=== PATIENT | male | born 1960 | race Caucasian/White ===

== ENCOUNTER → 2020-08-29 15:36 | Outpatient (BNVA) | payer BC, SELFPAY | PROVIDERS: PCP Internal Medicine; Referring Provider Internal Medicine; Visit Provider Internal Medicine Cardiovascular Disease | DX: Z76.89 Persons encountering health services in other specified circumstances (principal) ==

== ENCOUNTER 2020-10-02 14:02 | Outpatient (REF) | payer BC, SELFPAY ==
[2020-10-02 14:47] LABS: Blood Urea Nitrogen 19 mg/dL (9-16); Estimated Glomerular Filt Rate 58; Glucose Fasting 119 mg/dL (60-99)
== END 2020-10-02 14:03 | disposition home or self-care (01) ==
LOC: HO.LAB 14:02
PROVIDERS: PCP Internal Medicine; Visit Provider Internal Medicine
DX: R73.03 Prediabetes (principal); R79.9 Abnormal finding of blood chemistry, unspecified
CPT/HCPCS: 82565; 82947; 84520

== ENCOUNTER 2021-01-02 08:43 | Outpatient (REF) | payer BC, SELFPAY ==
[2021-01-02 10:22] LABS: Estimated Average Glucose 105 mg/dL; Hemoglobin A1c % 5.3 %
[2021-01-02 10:45] LABS: Alanine Aminotransferase 19 U/L (0-40); Albumin Level 4.5 g/dL (3.5-5.0); Alkaline Phosphatase 73 U/L (39-117); Anion Gap 14 (12-20); Aspartate Amino Transferase 22 U/L (5-37); Bilirubin Direct 0.3 mg/dL (0.0-0.5); Bilirubin Total 0.6 mg/dL (0.0-1.0); Blood Urea Nitrogen 21 mg/dL (9-16); Carbon Dioxide 28 mmol/L (22-29); Chloride 101 mmol/L (96-108); Cholesterol 94 mg/dL; Estimated Glomerular Filt Rate > 60; Glucose Fasting 111 mg/dL (60-99); HDL Cholesterol 34 mg/dL; LDL Cholesterol Calculated 46 mg/dl; Potassium 4.3 mmol/L (3.3-5.1); Sodium 139 mmol/L (135-145); Total Protein 6.8 g/dL (6.5-8.0); Triglycerides 74 mg/dL
[2021-01-02 11:04] LABS: Reflex LDLD? No
== END 2021-01-02 08:44 | disposition home or self-care (01) ==
LOC: HO.10HDL 08:43
PROVIDERS: Visit Provider Internal Medicine
DX: R73.03 Prediabetes (principal); I25.118 Atherosclerotic heart disease of native coronary artery with other forms of angina pectoris
CPT/HCPCS: 36415; 80051; 80061; 80076; 82565; 82947; 83036; 84520

== ENCOUNTER → 2021-02-27 07:37 | Outpatient (REF) | payer BC, SELFPAY ==
--- NOTE | 2021-02-27 07:39 | CA_ITS ---
Transthoracic Echocardiogram Patient (Last, First, Middle): Kevin Guerrero M Gender: Male Date of : 1960 Age: 61 Procedure Date: 02/27/2021 Procedure Type: Transthoracic Echocardiogram Location: OP Height: 180.34 cm Weight: 81.65 kg BSA: 2.02 m2 Heart Rate: bpm BP: 130 / 74 mmHg Route Delivery Manager: Juan MD: Kvng Hooks MD Synchronous Motor Assembler: Kvng Hooks MD Symptoms: I25.10 - Atherosclerotic heart disease of [place] coronary artery without angina pectoris Study Quality: Good ECG Rhythm: Sinus Conclusions: - 1. Normal LV systolic function with impaired relaxation filling pattern 2. Mild aortic regurgitation 3. Normal RV systolic pressure 4. Mildly dilated aortic root 5. No pericardial effusion Findings Left Ventricle Normal left ventricular size and systolic function. There is mildly increased left ventricular wall thickness. The visually estimated ejection fraction is between 65-70%. Spectral Doppler is indicative of an impaired relaxation filling pattern. E/E prime ratio is between 8 and 15 consistent with indeterminate filling pressures. Right Ventricle Normal right ventricular cavity size and systolic function. Atria The left atrium is likely dilated. There is no evidence of interatrial shunt. The right atrium is normal in size. Aortic Valve Normal aortic valve structure and function. There is no aortic valve stenosis. There is mild aortic valve regurgitation. Mitral Valve There is mild posterior mitral leaflet thickening. There is mild mitral annular calcification. There is trace mitral valve regurgitation. There is no mitral valve stenosis. Pulmonic Valve The pulmonic valve is likely normal. There is trace to mild pulmonic valve regurgitation. Tricuspid Valve Normal tricuspid valve structure. There is trace tricuspid valve regurgitation. The right ventricular systolic pressure is normal. The right ventricular systolic pressure is 23 mmHg. Normal right atrial pressure. There is no evidence of pulmonary hypertension. Great Vessels There is mild dilatation of the sinuses of Valsalva. The visualized portions of the pulmonary artery and branches are normal. Venous The inferior vena cava is normal in size and collapses greater than 50% with inspiration. Pericardium/Pleural There is no evidence of pericardial effusion. Prior Study Comparison Changes noted compared to prior study dated: 11/20/2020. Mitral regurgitation appears to be trace on this study. There is mild aortic regurgitation noted Measurements 2D Linear Measurements RVIDd: 3.11 RVIDd Index: 1.54 IVSd: 1.20 0.6-0.9/0.6-1.0 cm LVIDd: 5.19 3.9-5.3/4.2-5.9 cm LVIDd Index: 2.57 2.4-3.2/2.2-3.1 cm/m2 LVIDs: 3.28 2.0-3.6 cm LVPWd: 1.18 0.7-1.1 cm Ao Root: 4.20 2.1-3.5 cm LA Diam: 3.90 2.7-3.8/3.0-4.0 cm LAIDs Index: 1.93 1.5-2.3 cm/m2 LV Mass: 305.76 67-162/88-224 g LV Mass Index: 151.37 43-95/49-115 g/m2 LVOT Diam: 2.30 3.0+(-)1.3 cm 2D Systolic Function EF 4C: 75.50 >55% EF 2C: 73.80 >55% EF BiP: 75.20 >55% Mitral Valve MV Pk E: 0.65 MV PK A: 0.67 MV Decel Time: 264.00 E/A: 1.00 E'Lateral: 6.58 E'Medial: 3.77 E/E' Med: 17.20 E/E' Lat: 9.90 Aortic Valve AoV Pk Fareed: 1.35 AoV Mn Fareed: 0.97 AoV VTI: 0.28 AoV Pk Grad: 7.00 Aov Mn Grad: 4.00 MARY Cont.VTI: 4.06 AI Pk Fareed: 3.68 AI [place]: 1.02 LVOT LVOT Pk Fareed: 1.37 LVOT Mn Fareed: 0.87 LVOT VTI: 0.27 LVOT Pk Grad: 8.00 LVOT Mn Grad: 4.00 LVOT Diam: 2.30 LVOT Area: 4.15 Diastolic Function MV Pk E: 0.65 MV Pk A: 0.67 E/A: 1.00 E'Medial: 3.77 E/E' Med: 17.20 E' Laterial: 6.58 E/E' Lat: 9.90 Tricuspid Valve TR Pk Fareed: 1.95 TR Pk Grad: 15.00 RA Press: 8.00 RVSP: 23.00 Great Vessels Aorta Ao Root-2D: 4.20 2.0-3.7 cm Sinus of Valsalva: 4.20 2.0-3.5 cm Ao Asc: 3.60 2.1-3.4 cm Ao Arch: 3.10 Updated in Other Vendor System with Status of Final Kvng Hooks MD electronically signed on 02/27/2021 12:46:29 PM with status of Final
== END ==
LOC: HO.CARD 07:37
PROVIDERS: PCP Internal Medicine; Visit Provider Internal Medicine Cardiovascular Disease
DX: I25.10 Atherosclerotic heart disease of native coronary artery without angina pectoris (principal); I47.1 Supraventricular tachycardia; I71.2 Thoracic aortic aneurysm, without rupture
CPT/HCPCS: 93306

== ENCOUNTER → 2021-03-15 15:14 | Outpatient (BNVA) | payer BC, SELFPAY | PROVIDERS: PCP Internal Medicine; Referring Provider Internal Medicine; Visit Provider Internal Medicine Cardiovascular Disease ==

== ENCOUNTER 2021-07-09 16:30 | Outpatient (REF) | payer BC, SELFPAY ==
[2021-07-09 16:33] LABS: MANUAL DIFF FLAG NO
[2021-07-09 16:54] LABS: Basophils Absolute Auto 0.1 X10*3/uL (0.0-0.2); Basophils Percent Auto 0.8 % (0-2); Eosinophils Absolute Auto 0.1 X10*3/uL (0.0-0.4); Eosinophils Percent Auto 1.4 % (0-4); Hematocrit 43.1 % (42-52); Hemoglobin 15.1 g/dl (14.0-18.0); Imm Gran Abs Auto 0.02 X10*3/uL (0.00-0.03); Imm Gran Pct Auto 0.3 % (0.0-0.4); Lymphocytes Absolute Auto 1.6 X10*3/uL (1.2-4.9); Lymphocytes Percent Auto 23.7 % (20-40); Mean Corpuscular Hemoglobin 32.9 pg (27.0-33.0); Mean Corpuscular Volume 93.9 fL (80-98); Mean Platelet Volume 10.3 fL (9.4-12.4); Monocytes Absolute Auto 0.7 X10*3/uL (0.1-1.2); Monocytes Percent Auto 10.7 % (2-11); Neutrophils Absolute Auto 4.2 X10*3/uL (2.0-8.3); Neutrophils Percent Auto 63.1 % (45-73); Platelet Count 191 X10*3/uL (160-400); Red Blood Count 4.59 X10*6/uL (4.60-5.80); White Blood Count 6.6 X10*3/uL (4.8-10.8)
[2021-07-09 16:57] LABS: Appearance Urine CLEAR; Color Urine YELLOW; Glucose Urine UA NEG (NEG); Leukocyte Esterase Urine NEG (NEG); Nitrite Urine NEG (NEG); Urine Blood NEG (NEG); Urine Ketones NEG (NEG); Urine Protein NEG (NEG-TRACE)
[2021-07-09 17:04] LABS: Estimated Average Glucose 105 mg/dL; Hemoglobin A1c % 5.3 %
[2021-07-09 17:20] LABS: Microalbum/Creatinine Ratio Ur 5.2 ug/mg cr
[2021-07-09 17:23] LABS: Alanine Aminotransferase 19 U/L (0-40); Albumin Level 4.5 g/dL (3.5-5.0); Alkaline Phosphatase 71 U/L (39-117); Anion Gap 14 (12-20); Aspartate Amino Transferase 20 U/L (5-37); Bilirubin Total 0.6 mg/dL (0.0-1.0); Blood Urea Nitrogen 16 mg/dL (9-16); Calcium 9.4 mg/dL (8.4-10.2); Carbon Dioxide 27 mmol/L (22-29); Chloride 101 mmol/L (96-108); Cholesterol 94 mg/dL; Estimated Glomerular Filt Rate > 60; Glucose Fasting 105 mg/dL (60-99); HDL Cholesterol 35 mg/dL; LDL Cholesterol Calculated 41 mg/dl; Potassium 4.3 mmol/L (3.3-5.1); Sodium 138 mmol/L (135-145); Total Protein 7.1 g/dL (6.5-8.0); Triglycerides 93 mg/dL
[2021-07-09 17:42] LABS: PSA,Total (Free>4and<10) 0.63 ng/mL (0.00-4.00); TSH reflex Free T4 1.11 uIU/mL (0.32-4.0); Vitamin D 25-OH Total 35.7 ng/mL (>30)
[2021-07-09 17:56] LABS: Reflex LDLD? No
== END 2021-07-09 16:31 | disposition home or self-care (01) ==
LOC: HO.LNP 16:30
PROVIDERS: Visit Provider Internal Medicine
DX: Z00.00 Encounter for general adult medical examination without abnormal findings (principal); Z12.5 Encounter for screening for malignant neoplasm of prostate; R73.03 Prediabetes; R79.9 Abnormal finding of blood chemistry, unspecified; E55.9 Vitamin D deficiency, unspecified; I10 Essential (primary) hypertension
CPT/HCPCS: 80053; 80061; 81003; 82043; 82306; 83036; 84153; 84443; 85025

== ENCOUNTER → 2021-10-25 13:17 | Outpatient (BNVA) | payer BC, SELFPAY | PROVIDERS: PCP Internal Medicine; Referring Provider Internal Medicine; Visit Provider Internal Medicine Cardiovascular Disease | DX: I25.10 Atherosclerotic heart disease of native coronary artery without angina pectoris (principal); I71.2 Thoracic aortic aneurysm, without rupture; I47.1 Supraventricular tachycardia | CPT/HCPCS: 93005 ==

== ENCOUNTER 2022-01-03 08:08 | Outpatient (REF) | payer BC, SELFPAY ==
[2022-01-03 09:08] LABS: Estimated Average Glucose 111 mg/dL; Hemoglobin A1c % 5.5 %
[2022-01-03 09:09] LABS: Alanine Aminotransferase 22 U/L (0-40); Albumin Level 4.6 g/dL (3.5-5.0); Alkaline Phosphatase 65 U/L (39-117); Aspartate Amino Transferase 22 U/L (5-37); Bilirubin Direct 0.3 mg/dL (0.0-0.5); Bilirubin Total 0.8 mg/dL (0.0-1.0); Cholesterol 97 mg/dL; Glucose Fasting 107 mg/dL (60-99); HDL Cholesterol 34 mg/dL; LDL Cholesterol Calculated 42 mg/dl; Total Protein 7.2 g/dL (6.5-8.0); Triglycerides 106 mg/dL
[2022-01-03 18:04] LABS: Reflex LDLD? No
== END 2022-01-03 08:09 | disposition home or self-care (01) ==
LOC: HO.LAB 08:08
PROVIDERS: PCP Internal Medicine; Visit Provider Internal Medicine
DX: I25.118 Atherosclerotic heart disease of native coronary artery with other forms of angina pectoris (principal); R73.03 Prediabetes
CPT/HCPCS: 36415; 80061; 80076; 82947; 83036

== ENCOUNTER → 2022-05-09 15:21 | Outpatient (BNVA) | payer BC, SELFPAY | PROVIDERS: PCP Internal Medicine; Referring Provider Internal Medicine; Visit Provider Internal Medicine Cardiovascular Disease | DX: I25.10 Atherosclerotic heart disease of native coronary artery without angina pectoris (principal); I47.1 Supraventricular tachycardia; I71.2 Thoracic aortic aneurysm, without rupture | CPT/HCPCS: 93005 ==

== ENCOUNTER 2022-07-25 10:48 | Outpatient (REF) | payer BC, SELFPAY ==
[2022-07-25 10:53] LABS: MANUAL DIFF FLAG NO
[2022-07-25 11:37] LABS: Basophils Absolute Auto 0.1 X10*3/uL (0.0-0.2); Basophils Percent Auto 0.7 % (0-2); Eosinophils Absolute Auto 0.1 X10*3/uL (0.0-0.4); Eosinophils Percent Auto 1.2 % (0-4); Hematocrit 40.7 % (42.0-52.0); Hemoglobin 14.5 g/dl (14.0-18.0); Imm Gran Abs Auto 0.02 X10*3/uL (0.00-0.03); Imm Gran Pct Auto 0.3 % (0.0-0.4); Lymphocytes Absolute Auto 2.4 X10*3/uL (1.2-4.9); Lymphocytes Percent Auto 31.3 % (20-40); Mean Corpuscular HGB Conc 35.6 g/dl (31.0-36.0); Mean Corpuscular Hemoglobin 32.9 pg (27.0-33.0); Mean Corpuscular Volume 92.3 fL (80.0-98.0); Mean Platelet Volume 10.1 fL (9.4-12.4); Monocytes Absolute Auto 0.9 X10*3/uL (0.1-1.2); Monocytes Percent Auto 11.8 % (2-11); Neutrophils Absolute Auto 4.2 x10*3/uL (2.0-8.3); Neutrophils Percent Auto 54.7 % (45-73); Platelet Count 181 X10*3/uL (160-400); Red Blood Count 4.41 X10*6/uL (4.60-5.80); Red Cell Distribution Width 11.9 % (11.0-16.0); White Blood Count 7.7 X10*3/uL (4.8-10.8)
[2022-07-25 11:42] LABS: Appearance Urine Clear; Color Urine Yellow; Glucose Urine UA Negative (Negative); Leukocyte Esterase Urine Negative (Negative); Nitrite Urine Negative (Negative); Specific Gravity - Urine 1.025 (1.005-1.025); Urine Blood Negative (Negative); Urine Ketones Negative (Negative); Urine Protein Negative (Neg-Trace)
[2022-07-25 11:49] LABS: Bacteria Urine None Seen (None Seen); Hyaline Casts Urine 0-2 /LPF (0-2); RBC Urine 0-2 /HPF (0-2); Squamous Epithelial Cell Urine 0-2 /HPF (0-2); WBC Urine 0-5 /HPF (0-5)
[2022-07-25 11:50] LABS: Estimated Average Glucose 108 mg/dL; Hemoglobin A1c % 5.4 %
[2022-07-25 11:53] LABS: Alanine Aminotransferase 24 U/L (0-40); Albumin Level 4.6 g/dL (3.5-5.0); Alkaline Phosphatase 65 U/L (39-117); Anion Gap 15 (12-20); Aspartate Amino Transferase 22 U/L (5-37); Bilirubin Total 0.5 mg/dL (0.0-1.0); Blood Urea Nitrogen 25 mg/dL (9-16); Calcium 9.5 mg/dL (8.4-10.2); Carbon Dioxide 28 mmol/L (22-29); Chloride 98 mmol/L (96-108); Cholesterol 103 mg/dL; Estimated Glomerular Filt Rate 50; Glucose Fasting 99 mg/dL (60-99); HDL Cholesterol 40 mg/dL; LDL Cholesterol Calculated 44 mg/dl; Potassium 4.4 mmol/L (3.3-5.1); Sodium 137 mmol/L (135-145); Triglycerides 97 mg/dL
[2022-07-25 12:14] LABS: PSA,Total (Free>4and<10) 0.85 ng/mL (0.00-4.00); Vitamin D 25-OH Total 37.9 ng/mL (>30)
[2022-07-25 12:19] LABS: Creatinine Urine 189.23 mg/dL; Microalbum/Creatinine Ratio Ur 3.1 ug/mg cr
== END 2022-07-25 10:49 | disposition home or self-care (01) ==
LOC: HO.LNP 10:48
PROVIDERS: Visit Provider Internal Medicine
DX: Z00.00 Encounter for general adult medical examination without abnormal findings (principal); Z12.5 Encounter for screening for malignant neoplasm of prostate; R73.03 Prediabetes; R79.9 Abnormal finding of blood chemistry, unspecified; I10 Essential (primary) hypertension; E55.9 Vitamin D deficiency, unspecified
CPT/HCPCS: 80053; 80061; 81001; 82043; 82306; 83036; 84153; 85025

== ENCOUNTER 2022-07-29 17:02 | Outpatient (REF) | payer BC, SELFPAY ==
[2022-07-29 17:36] LABS: Blood Urea Nitrogen 30 mg/dL (9-16); Estimated Glomerular Filt Rate 55
== END 2022-07-29 17:03 | disposition home or self-care (01) ==
LOC: HO.LAB 17:02
PROVIDERS: PCP Internal Medicine; Visit Provider Internal Medicine
DX: R79.9 Abnormal finding of blood chemistry, unspecified (principal)
CPT/HCPCS: 36415; 82565; 84520

== ENCOUNTER 2022-08-29 13:58 | Outpatient (REF) | payer BC, SELFPAY ==
[2022-08-29 15:03] LABS: Blood Urea Nitrogen 17 mg/dL (9-16); Estimated Glomerular Filt Rate > 60
== END 2022-08-29 13:59 | disposition home or self-care (01) ==
LOC: HO.LAB 13:58
PROVIDERS: PCP Internal Medicine; Visit Provider Internal Medicine
DX: R79.9 Abnormal finding of blood chemistry, unspecified (principal)
CPT/HCPCS: 36415; 82565; 84520

== ENCOUNTER 2022-10-04 10:18 | Outpatient (REF) | payer BC, SELFPAY ==
--- NOTE | ~2022-10-04 | US_ITS ---
EXAMINATION: US ABDOMEN COMPLETE CLINICAL INFORMATION: Unspecified abdominal pain. COMPARISON: None TECHNIQUE: Real-time imaging of the abdominal viscera. Technically limited study secondary to bowel gas. FINDINGS: PANCREAS: Not visualized due to bowel gas ABDOMINAL AORTA: Not visualized due to bowel gas INFERIOR VENA CAVA: Visualized portions are normal. LIVER: Normal. The liver is normal in size. The liver contour is normal. Parenchymal echogenicity is normal. No focal hepatic lesion. There is no intrahepatic biliary duct dilatation seen. GALLBLADDER: Normal. The gallbladder is physiologically distended without evidence of stones, sludge, polyps, wall thickening or pericholecystic fluid. COMMON BILE DUCT: Normal in caliber measuring 0.5 cm in diameter. RIGHT KIDNEY: Normal. No hydronephrosis. No renal calculi or focal parenchymal lesions. The kidney measures 11.0 cm in maximum dimension. LEFT KIDNEY: Normal. No hydronephrosis. No renal calculi or focal parenchymal lesions. The kidney measures 11.1 cm in maximum dimension. SPLEEN: Normal. Small splenule measuring 1.6 x 1.5 x 1.3 cm. The spleen measures 11.9 cm in maximum dimension. FREE FLUID: None. US/US abdomen complete IMPRESSION: Pancreas and aorta not visualized. Other unremarkable exam.
== END 2022-10-04 10:19 | disposition home or self-care (01) ==
LOC: HO.US 10:18
PROVIDERS: Visit Provider Internal Medicine
DX: R10.9 Unspecified abdominal pain (principal)
CPT/HCPCS: 76700

== ENCOUNTER 2023-02-04 07:58 | Outpatient (REF) | payer BC, SELFPAY ==
[2023-02-04 08:41] LABS: Estimated Average Glucose 108 mg/dL; Hemoglobin A1c % 5.4 %
[2023-02-04 09:29] LABS: Blood Urea Nitrogen 20 mg/dL (9-16); Cholesterol 106 mg/dL; Estimated Glomerular Filt Rate 57; Glucose Random 115 mg/dL (60-115); HDL Cholesterol 36 mg/dL; LDL Cholesterol Calculated 53 mg/dl; Triglycerides 85 mg/dL
[2023-02-04 09:36] LABS: Reflex LDLD? No
== END 2023-02-04 07:59 | disposition home or self-care (01) ==
LOC: HO.LAB 07:58
PROVIDERS: PCP Internal Medicine; Visit Provider Internal Medicine
DX: R79.9 Abnormal finding of blood chemistry, unspecified (principal); R73.03 Prediabetes; I10 Essential (primary) hypertension
CPT/HCPCS: 36415; 80061; 82565; 82947; 83036; 84520

== ENCOUNTER → 2023-03-06 12:59 | Outpatient (REF) | payer BC, SELFPAY ==
--- NOTE | 2023-03-06 13:02 | CA_ITS ---
Transthoracic Echocardiogram Patient (Last, First, Middle): Kevin Guerrero M Gender: Male Date of : 1960 Age: 63 Procedure Date: 03/06/2023 Procedure Type: Transthoracic Echocardiogram Location: OP Height: 177.8 cm Weight: 86.18 kg BSA: 2.04 m2 Heart Rate: bpm BP: 155 / 85 mmHg Product Development Scientist: JEANIE Referring MD: Kvng Hooks MD Symptoms: I71.2 - Thoracic aortic aneurysm, without rupture Study Quality: Adequate ECG Rhythm: Sinus Conclusions: - The left ventricular systolic function is normal. The calculated ejection fraction is 68% by biplane method. - There is mildly increased left ventricular wall thickness. - There is mild aortic valve regurgitation. - There is mild dilatation of the sinuses of Valsalva measuring 4.62 cm and mild dilatation of the ascending aorta measuring 4.10 cm. Findings Left Ventricle Normal left ventricular cavity size. There is mildly increased left ventricular wall thickness. The left ventricular systolic function is normal. The calculated ejection fraction is 68% by biplane method. There is no evidence of regional wall motion abnormalities. Diastolic function is normal for age. LV peak GLS -17.6%. Right Ventricle Normal right ventricular cavity size and systolic function. Atria Both atria are normal in size. Aortic Valve There is a normal trileaflet aortic valve. There is no aortic valve stenosis. There is mild aortic valve regurgitation. Mitral Valve There is mild mitral annular calcification. There is trace mitral valve regurgitation. There is no mitral valve stenosis. Pulmonic Valve There is trace pulmonic valve regurgitation. Tricuspid Valve There is mild tricuspid valve regurgitation. There is no evidence of pulmonary hypertension. Great Vessels There is mild dilatation of the sinuses of Valsalva measuring 4.62 cm and mild dilatation of the ascending aorta measuring 4.10 cm. Venous The inferior vena cava is mildly dilated and collapses greater than 50% with inspiration. Pericardium/Pleural There is no evidence of pericardial effusion. Prior Study Comparison Changes noted compared to prior study dated: 02/27/2021. Increase in ascending aortic size. Measurements 2D Linear Measurements IVSd: 1.12 0.6-0.9/0.6-1.0 cm LVIDd: 4.67 3.9-5.3/4.2-5.9 cm LVIDd Index: 2.29 2.4-3.2/2.2-3.1 cm/m2 LVIDs: 3.07 2.0-3.6 cm LVPWd: 1.25 0.7-1.1 cm LA Diam: 4.30 2.7-3.8/3.0-4.0 cm LAIDs Index: 2.11 1.5-2.3 cm/m2 LV Mass: 256.95 67-162/88-224 g LV Mass Index: 125.96 43-95/49-115 g/m2 LVOT Diam: 2.20 3.0+(-)1.3 cm 2D Systolic Function EF 4C: 69.30 >55% EF 2C: 66.80 >55% EF BiP: 67.60 >55% Mitral Valve MV Pk E: 0.90 MV PK A: 0.82 MV Decel Time: 250.00 E/A: 1.10 E'Lateral: 8.92 E'Medial: 4.79 E/E' Med: 18.90 E/E' Lat: 10.10 PHT: 73.00 MVA PHT: 3.01 Decel Wilkinson: 3.62 Aortic Valve AoV Pk Fareed: 1.64 AoV Mn Fareed: 1.14 AoV VTI: 0.39 AoV Pk Grad: 11.00 Aov Mn Grad: 6.00 MARY Cont.VTI: 3.39 AI Pk Fareed: 4.46 AI Wilkinson: 1.70 LVOT LVOT Pk Fareed: 1.50 LVOT Mn Fareed: 0.97 LVOT VTI: 0.34 LVOT Pk Grad: 9.00 LVOT Mn Grad: 4.00 LVOT Diam: 2.20 LVOT Area: 3.80 Diastolic Function MV Pk E: 0.90 MV Pk A: 0.82 E/A: 1.10 E'Medial: 4.79 E/E' Med: 18.90 E' Laterial: 8.92 E/E' Lat: 10.10 Right Ventricle TAPSE (mm): 21.70 TVS' Fareed: 12.10 Tricuspid Valve TR Pk Fareed: 2.40 TR Pk Grad: 23.00 RA Press: 8.00 RVSP: 31.00 Great Vessels Aorta Sinus of Valsalva: 4.62 2.0-3.[address] [place]: 3.52 1.7-3.4 cm Ao Asc: 4.10 2.1-3.4 cm Ao Arch: 3.50 Updated in Other Vendor System with Status of Final Ang Caballero MD electronically signed on 03/07/2023 3:29:10 PM with status of Final
== END ==
LOC: HO.CARD 12:59
PROVIDERS: PCP Internal Medicine; Visit Provider Internal Medicine Cardiovascular Disease
DX: I25.10 Atherosclerotic heart disease of native coronary artery without angina pectoris (principal); I71.20 Thoracic aortic aneurysm, without rupture, unspecified
CPT/HCPCS: 93306; 93356

== ENCOUNTER → 2023-04-10 15:33 | Outpatient (BNVA) | payer BC, SELFPAY | PROVIDERS: PCP Internal Medicine; Referring Provider Internal Medicine; Visit Provider Internal Medicine Cardiovascular Disease | DX: I25.10 Atherosclerotic heart disease of native coronary artery without angina pectoris (principal); I47.1 Supraventricular tachycardia | CPT/HCPCS: 93005 ==

== ENCOUNTER 2023-08-05 07:53 | Outpatient (REF) | payer BC, SELFPAY ==
[2023-08-05 10:45] LABS: Appearance Urine Clear; Color Urine Yellow; Glucose Urine UA Negative (Negative); Leukocyte Esterase Urine Trace (Negative); Nitrite Urine Negative (Negative); PH 7.5 (5.0-9.0); Specific Gravity - Urine 1.015 (1.005-1.025); UMIC TRIGGER UACC YES; Urine Blood Negative (Negative); Urine Ketones Negative (Negative); Urine Protein Negative (Neg-Trace)
[2023-08-05 10:47] LABS: Bacteria Urine None Seen (None Seen); Hyaline Casts Urine 0-2 /LPF (0-2); RBC Urine 0-2 /HPF (0-2); Squamous Epithelial Cell Urine 0-2 /HPF (0-2); WBC Urine 0-5 /HPF (0-5)
[2023-08-05 10:51] LABS: MANUAL DIFF FLAG NO
[2023-08-05 10:53] LABS: Basophils Absolute Auto 0.1 X10*3/uL (0.0-0.2); Basophils Percent Auto 0.6 % (0-2); Eosinophils Absolute Auto 0.1 X10*3/uL (0.0-0.4); Eosinophils Percent Auto 1.1 % (0-4); Imm Gran Abs Auto 0.04 X10*3/uL (0.00-0.03); Imm Gran Pct Auto 0.4 % (0.0-0.4); Lymphocytes Absolute Auto 2.5 X10*3/uL (1.2-4.9); Mean Corpuscular HGB Conc 34.9 g/dl (31.0-36.0); Mean Corpuscular Hemoglobin 31.6 pg (27.0-33.0); Mean Corpuscular Volume 90.5 fL (80.0-98.0); Mean Platelet Volume 9.7 fL (9.4-12.4); Monocytes Absolute Auto 0.9 X10*3/uL (0.1-1.2); Neutrophils Absolute Auto 5.7 x10*3/uL (2.0-8.3); Neutrophils Percent Auto 60.9 % (45-73); Platelet Count 224 X10*3/uL (160-400); Red Blood Count 4.75 X10*6/uL (4.60-5.80); Red Cell Distribution Width 11.6 % (11.0-16.0); White Blood Count 9.3 X10*3/uL (4.8-10.8)
[2023-08-05 11:30] LABS: Estimated Average Glucose 111 mg/dL; Hemoglobin A1c % 5.5 % (<6.0)
[2023-08-05 11:46] LABS: PSA,Total (Free>4and<10) 1.09 ng/mL (0.00-4.00)
[2023-08-05 12:02] LABS: Alanine Aminotransferase 25 U/L (0-40); Albumin Level 4.5 g/dL (3.5-5.0); Alkaline Phosphatase 75 U/L (39-117); Anion Gap 12 (12-20); Aspartate Amino Transferase 25 U/L (5-37); Bilirubin Total 0.8 mg/dL (0.0-1.0); Blood Urea Nitrogen 15 mg/dL (9-16); Calcium 9.9 mg/dL (8.4-10.2); Carbon Dioxide 29 mmol/L (22-29); Chloride 100 mmol/L (96-108); Estimated Glomerular Filt Rate > 60; Glucose Fasting 102 mg/dL (60-99); Potassium 4.1 mmol/L (3.3-5.1); Sodium 137 mmol/L (135-145); Total Protein 7.4 g/dL (6.5-8.0)
[2023-08-05 12:08] LABS: Vitamin D 25-OH Total 52.7 ng/mL (>30)
[2023-08-05 12:47] LABS: Creatinine Urine 153.71 mg/dL; Microalbum/Creatinine Ratio Ur 3.9 ug/mg cr (<30)
== END 2023-08-05 07:54 | disposition home or self-care (01) ==
LOC: HO.10HDL 07:53
PROVIDERS: Visit Provider Internal Medicine
DX: Z00.00 Encounter for general adult medical examination without abnormal findings (principal); Z12.5 Encounter for screening for malignant neoplasm of prostate; R73.03 Prediabetes; R79.9 Abnormal finding of blood chemistry, unspecified; E55.9 Vitamin D deficiency, unspecified
CPT/HCPCS: 36415; 80053; 81001; 82043; 82306; 82570; 83036; 84153; 85025

== ENCOUNTER 2024-02-21 10:47 | Outpatient (REF) | payer MEDICARE, SELFPAY ==
[2024-02-21 11:32] LABS: Estimated Average Glucose 111 mg/dL; Hemoglobin A1C 139.4965 umol/L; Hemoglobin A1c % 5.5 % (<6.0)
[2024-02-21 11:59] LABS: Alanine Aminotransferase 25 U/L (0-40); Albumin Level 4.5 g/dL (3.5-5.0); Alkaline Phosphatase 72 U/L (39-117); Aspartate Amino Transferase 22 U/L (5-37); Bilirubin Direct 0.2 mg/dL (0.0-0.5); Bilirubin Total 0.6 mg/dL (0.0-1.0); Cholesterol 100 mg/dL (<200); Glucose Fasting 108 mg/dL (60-99); HDL Cholesterol 39 mg/dL (>40); LDL Cholesterol Calculated 48 mg/dL (<100); Total Protein 7.4 g/dL (6.5-8.0); Triglycerides 65 mg/dL (<150)
== END 2024-02-21 10:48 | disposition home or self-care (01) ==
LOC: HO.LAB 10:47
PROVIDERS: PCP Internal Medicine; Visit Provider Internal Medicine
DX: R73.03 Prediabetes (principal); I25.118 Atherosclerotic heart disease of native coronary artery with other forms of angina pectoris
CPT/HCPCS: 36415; 80061; 80076; 82947; 83036

== ENCOUNTER → 2024-03-25 07:54 | Outpatient (REF) | payer MEDICARE, SELFPAY ==
--- NOTE | 2024-03-25 08:00 | CA_ITS ---
Transthoracic Echocardiogram Patient (Last, First, Middle): Kevin Guerrero M Gender: Male Date of : 1960 Age: 64 Procedure Date: 03/25/2024 Procedure Type: Transthoracic Echocardiogram Location: OP Height: 180.34 cm Weight: 86.18 kg BSA: 2.06 m2 Heart Rate: 55 bpm BP: 124 / 70 mmHg Community Health Advisor: SB Referring MD: Kvng Hooks MD Symptoms: I71.2 - Thoracic aortic aneurysm, without rupture Study Quality: Adequate ECG Rhythm: Bradycardia Conclusions: - The left ventricular systolic function is normal. The calculated ejection fraction is 64% by biplane method. - There is moderately increased left ventricular wall thickness. - There is mild aortic valve regurgitation. - There is mild dilatation of the sinuses of Valsalva measuring 4.40 cm and mild dilatation of the ascending aorta measuring 4.10 cm. Findings Left Ventricle Normal left ventricular cavity size. There is moderately increased left ventricular wall thickness. The left ventricular systolic function is normal. The calculated ejection fraction is 64% by biplane method. There is no evidence of regional wall motion abnormalities. Evidence suggests grade I (mild) diastolic dysfunction. LV peak GLS -16.3%, diminished but suspect under-estimation. Right Ventricle Normal right ventricular cavity size and systolic function. Atria Both atria are normal in size. Aortic Valve There is a normal trileaflet aortic valve. There is no aortic valve stenosis. There is mild aortic valve regurgitation. Mitral Valve The mitral valve appears normal. There is mild mitral annular calcification. There is trace mitral valve regurgitation. There is no mitral valve stenosis. Pulmonic Valve There is trace pulmonic valve regurgitation. Tricuspid Valve There is trace tricuspid valve regurgitation. There is no evidence of pulmonary hypertension. Great Vessels There is mild dilatation of the sinuses of Valsalva measuring 4.40 cm and mild dilatation of the ascending aorta measuring 4.10 cm. Venous The inferior vena cava is normal in size and collapses greater than 50% with inspiration. Pericardium/Pleural There is no evidence of pericardial effusion. Prior Study Comparison No significant change compared to prior study dated: 03/06/2023. Measurements 2D Linear Measurements IVSd: 1.38 0.6-0.9/0.6-1.0 cm LVIDd: 4.97 3.9-5.3/4.2-5.9 cm LVIDd Index: 2.41 2.4-3.2/2.2-3.1 cm/m2 LVIDs: 2.96 2.0-3.6 cm LVPWd: 1.34 0.7-1.1 cm LA Diam: 4.10 2.7-3.8/3.0-4.0 cm LAIDs Index: 1.99 1.5-2.3 cm/m2 LV Mass: 345.27 67-162/88-224 g LV Mass Index: 167.61 43-95/49-115 g/m2 LVOT Diam: 2.60 3.0+(-)1.3 cm 2D Systolic Function EF 4C: 63.00 >55% EF 2C: 63.40 >55% EF BiP: 63.60 >55% Mitral Valve MV Pk E: 0.63 MV PK A: 0.67 MV Decel Time: 250.00 E/A: 0.90 E'Lateral: 7.51 E'Medial: 3.59 E/E' Med: 17.40 E/E' Lat: 8.30 PHT: 73.00 MVA PHT: 3.01 Decel Smyth: 2.51 Aortic Valve AoV Pk Fareed: 1.34 AoV Mn Fareed: 0.92 AoV VTI: 0.29 AoV Pk Grad: 7.00 Aov Mn Grad: 4.00 MARY Cont.VTI: 5.46 AI Pk Fareed: 4.16 AI VTI: 2.78 AI Smyth: 1.50 AI Alias Fareed: 0.39 AI RV - PISA: 14.00 ERO - PISA: 5.00 LVOT LVOT Pk Fareed: 1.28 LVOT Mn Fareed: 0.89 LVOT VTI: 0.30 LVOT Pk Grad: 7.00 LVOT Mn Grad: 4.00 LVOT Diam: 2.60 LVOT Area: 5.31 Diastolic Function MV Pk E: 0.63 MV Pk A: 0.67 E/A: 0.90 E'Medial: 3.59 E/E' Med: 17.40 E' Laterial: 7.51 E/E' Lat: 8.30 Right Ventricle TAPSE (mm): 21.70 TVS' Fareed: 12.80 Tricuspid Valve TR Pk Fareed: 1.87 TR Pk Grad: 14.00 RA Press: 8.00 RVSP: 22.00 Great Vessels Aorta Sinus of Valsalva: 4.40 2.0-3.5 cm Ao Asc: 4.10 2.1-3.4 cm Ao Arch: 3.50 Pulmonary Veins Pulm Vein S/D 1.70 Pulmonary Valve PV Pk Fareed: 0.81 Peak PV Grad: 3.00 MS Pk Fareed: 1.68 Updated in Other Vendor System with Status of Final Ang Caballero MD electronically signed on 03/27/2024 10:52:00 AM with status of Final
== END ==
LOC: HO.CARD 07:54
PROVIDERS: PCP Internal Medicine; Visit Provider Internal Medicine Cardiovascular Disease
DX: I71.20 Thoracic aortic aneurysm, without rupture, unspecified (principal)
CPT/HCPCS: 93306; 93356

== ENCOUNTER → 2024-03-25 08:00 | Outpatient (BNV) | payer MEDICARE, SELFPAY | PROVIDERS: PCP Internal Medicine; Visit Provider Internal Medicine | DX: I35.1 Nonrheumatic aortic (valve) insufficiency (principal); I34.81 Nonrheumatic mitral (valve) annulus calcification; R93.1 Abnormal findings on diagnostic imaging of heart and coronary circulation | CPT/HCPCS: 93306; 93356 ==

== ENCOUNTER 2024-04-08 15:27 | Outpatient (AMB) | payer MEDICARE, SELFPAY ==
[2024-04-08 15:29] VITALS: BP 110/60; PULSE 59; BMI 26.1
--- NOTE | 2024-04-08 15:29 | A.OFFVIS_ITS ---
Vital Signs 04/08/24 15:29 Height 5 ft 11 in Weight 187 lb 6.287 oz BMI 26.1 BP 110/60 Blood Pressure Location Lt brachial Position Sitting Pulse 59 Intake Visit Reasons: 1 year follow-up Intake Note: 1 year follow-up with ekg feeling good Pump Erector Required: No Allergies No Known Allergies Allergy (Verified 08/29/20 15:39) Medication List - Last Reconciled 04/08/24 by Kvng Hooks MD acetaminophen (Tylenol) 325 mg PO QID PRN aspirin (Adult Low Dose Aspirin) 81 mg PO DAILY atorvastatin 80 mg PO DAILY cholecalciferol (vitamin D3) 25 mcg PO DAILY metoprolol succinate ER 50 mg PO DAILY 90 days nitroglycerin 0.4 mg sublingual omeprazole 20 mg PO DAILY sertraline 100 mg PO DAILY HPI Comments Details: Kevin comes for follow-up. Recent echocardiogram shows normal LV ejection fraction but moderate increase in left ventricular wall thickness consistent with left ventricular hypertrophy with mildly dilated ascending aorta. This is unchanged. Patient continues to have intermittent episodes of exertional jaw discomfort which is his anginal equivalent. The symptoms are not consistent. Can present at different times. He has not able to clearly delineate any possible triggers for this discomfort. He says blood pressure is generally well controlled. Last LDL is well optimized. Denies any SVT syndrome. Currently takes all his medications. [facility] Medical History Thoracic aortic aneurysm CAD (coronary artery disease) Hyperlipidemia HTN (hypertension) SVT (supraventricular tachycardia) Surgical History Stented coronary artery Family History Father CVD (cardiovascular disease) Diabetes Mother No problems noted. Social History Patient Tobacco Use Status: Never used Tobacco Review of Systems Const Denies chills, Denies fatigue, Denies fever(s), Denies frequent falls, Denies weakness, Denies weight gain and Denies weight loss ENT Denies dizziness Card Denies chest pain, Denies leg edema, Denies lightheadedness, Denies palpitations, Denies dyspnea, Denies dyspnea on exertion, Denies orthopnea and Denies other (loss of consciousness) Resp Denies cough, Denies dyspnea and Denies dyspnea on exertion GI Denies hematochezia and Denies change in stool character Musc Denies abnormal gait, Denies muscle weakness, Denies numbness, Denies radiating pain into limb and Denies tingling Neuro Denies abnormal gait, Denies dizziness, Denies frequent falls, Denies numbness, Denies tingling and Denies weakness Endo Denies fatigue and Denies palpitations Physical Exam Vital Signs: Last Vital Signs Pulse 59 04/08/24 15:29 BP 110/60 04/08/24 15:29 BMI result Body Mass Index 26.1 Const General: cooperative, comfortable, no acute distress, alert and awake Nutritional Appearance: average body habitus Orientation/consciousness: patient oriented x3 Limitations: no limitations Neck Neck: Yes trachea midline, Yes supple and Yes no JVD Carotids: no bruits Resp Effort & Inspection: normal respiratory effort Auscultation: clear to auscultation bilaterally Cardio Jugular venous distension: no JVD Palpation: normal PMI Rate: regular rate Rhythm: regular rhythm Heart sounds: S1 normal heart sound present and S2 normal heart sound present Skin General skin exam: no rashes or lesions noted Neuro General: patient oriented x3 and no focal motor deficits Extrem General: Yes no clubbing, cyanosis or edema Psych Appearance: grossly normal Office Procedures EKG Details: EKG shows normal sinus rhythm with left axis deviation with QS in high lateral leads which could suggest small lateral infarct. [id number], Complete Assessment & Plan Assessment & Plan (1) CAD (coronary artery disease): Comment: progressive angina with severe 2 vessel disease with chronic total occlusion of LAD in the mid segment as well as chronic total occlusion of OM branch Code(s): I25.10 - Atherosclerotic heart disease of enterprise coronary artery without angina pectoris Category: Medical Plan: CAD with severe two-vessel disease with complex PCI of chronic total occlusion to LAD and OM branch remotely. Currently having symptoms of exertional discomfort similar to his angina which is concerning. Could be related to LVH although progressive coronary artery disease as well as stent restenosis needs to ruled out. Will suggest exercise myocardial perfusion imaging in near future to further assess for the same. Further management and workup will depend on the findings of stress test. This was discussed with him. Meanwhile advised him to continue aspirin as well as high-intensity statin therapy. His LDL is well optimized. Blood pressure is currently well optimized. Advised to monitor blood pressure intermittently at home. He has not had any symptoms at rest. Advised to call me if he has progressive symptoms. (2) Thoracic aortic aneurysm: Code(s): I71.2 - Thoracic aortic aneurysm, without rupture Category: Medical Plan: Thoracic aortic aneurysm which has remained failed mild. Will continue monitor every couple years. Continue aggressive blood pressure control which is currently well optimized. Continue aggressive lipid modification vascular risk factor modifications above. (3) SVT (supraventricular tachycardia): Code(s): I47.1 - Supraventricular tachycardia Category: Medical Plan: SVT which has remained suppressed on metoprolol therapy. At this point time no further therapy is recommended. Will follow up in the clinic in 1 year's time, sooner p.r.n.. Thank you for allowing me to partake in his care Orders: Orders CA stress test Today I25.10 - Atherosclerotic heart disease of enterprise coronary artery without angina pectoris NM cardiolite stress test 2 Weeks I25.10 - Atherosclerotic heart disease of enterprise coronary artery without angina pectoris, R07.9 - Chest pain, unspecified Coding Level of Care Code Est Pt Level 4 (31916) Diagnoses CAD (coronary artery disease) I25.10 Thoracic aortic aneurysm I71.2 SVT (supraventricular tachycardia) I47.1 CPT Codes EKG - CPT: [id number], Complete ([id number])
== END 2024-04-08 15:58 | disposition home or self-care (01) ==
PROVIDERS: PCP Internal Medicine; Visit Provider Internal Medicine Cardiovascular Disease
DX: I25.10 Atherosclerotic heart disease of native coronary artery without angina pectoris (principal); I71.20 Thoracic aortic aneurysm, without rupture, unspecified; I47.10 Supraventricular tachycardia, unspecified
CPT/HCPCS: 93010; 99214

== ENCOUNTER → 2024-04-08 15:27 | Outpatient (BNVA) | payer BC, SELFPAY | PROVIDERS: PCP Internal Medicine; Visit Provider Internal Medicine Cardiovascular Disease | DX: I25.10 Atherosclerotic heart disease of native coronary artery without angina pectoris (principal); I71.20 Thoracic aortic aneurysm, without rupture, unspecified; I47.10 Supraventricular tachycardia, unspecified; Z79.82 Long term (current) use of aspirin; Z79.899 Other long term (current) drug therapy | CPT/HCPCS: 93005; 99212 ==

== ENCOUNTER 2024-08-12 08:51 | Outpatient (REF) | payer MEDICARE, SELFPAY ==
[2024-08-12 09:04] LABS: MANUAL DIFF FLAG NO
[2024-08-12 09:15] LABS: Basophils Absolute Auto 0.1 X10*3/uL (0.0-0.2); Basophils Percent Auto 0.7 % (0-2); Eosinophils Absolute Auto 0.1 X10*3/uL (0.0-0.4); Eosinophils Percent Auto 0.7 % (0-4); Hematocrit 39.8 % (42.0-52.0); Hemoglobin 14.2 g/dl (14.0-18.0); Imm Gran Abs Auto 0.02 X10*3/uL (0.00-0.03); Imm Gran Pct Auto 0.3 % (0.0-0.4); Lymphocytes Absolute Auto 1.8 X10*3/uL (1.2-4.9); Lymphocytes Percent Auto 25.7 % (20-40); Mean Corpuscular HGB Conc 35.7 g/dl (31.0-36.0); Mean Corpuscular Hemoglobin 32.3 pg (27.0-33.0); Mean Corpuscular Volume 90.5 fL (80.0-98.0); Mean Platelet Volume 9.9 fL (9.4-12.4); Monocytes Absolute Auto 0.8 X10*3/uL (0.1-1.2); Monocytes Percent Auto 10.9 % (2-11); Neutrophils Absolute Auto 4.4 x10*3/uL (2.0-8.3); Neutrophils Percent Auto 61.7 % (45-73); Platelet Count 189 X10*3/uL (160-400); White Blood Count 7.1 X10*3/uL (4.8-10.8)
[2024-08-12 09:46] LABS: Alanine Aminotransferase 28 U/L (0-40); Albumin Level 4.5 g/dL (3.5-5.0); Alkaline Phosphatase 67 U/L (39-117); Anion Gap 11 (12-20); Aspartate Amino Transferase 34 U/L (5-37); Bilirubin Total 0.6 mg/dL (0.0-1.0); Blood Urea Nitrogen 18 mg/dL (9-16); Calcium 10.3 mg/dL (8.4-10.2); Carbon Dioxide 28 mmol/L (22-29); Chloride 102 mmol/L (96-108); Cholesterol 85 mg/dL (<200); Estimated Glomerular Filt Rate > 60; Glucose Fasting 116 mg/dL (60-99); HDL Cholesterol 37 mg/dL (>40); LDL Cholesterol Calculated 40 mg/dL (<100); Potassium 4.1 mmol/L (3.3-5.1); Sodium 137 mmol/L (135-145); Total Protein 7.1 g/dL (6.5-8.0); Triglycerides 44 mg/dL (<150)
[2024-08-12 09:49] LABS: Appearance Urine Clear; Color Urine Yellow; Glucose Urine UA Negative (Negative); Leukocyte Esterase Urine Negative (Negative); Nitrite Urine Negative (Negative); PH 7.5 (5.0-9.0); Specific Gravity - Urine 1.015 (1.005-1.025); Urine Blood Negative (Negative); Urine Ketones Negative (Negative); Urine Protein Negative (Neg-Trace)
[2024-08-12 09:53] LABS: Bacteria Urine None Seen (None Seen); Hyaline Casts Urine 0-2 /LPF (0-2); RBC Urine 0-2 /HPF (0-2); Squamous Epithelial Cell Urine 0-2 /HPF (0-2); WBC Urine 0-5 /HPF (0-5)
[2024-08-12 10:00] LABS: PSA,Total (Free>4and<10) 1.01 ng/mL (0.00-4.00)
[2024-08-12 10:02] LABS: Vitamin D 25-OH Total 41.8 ng/mL (>30)
== END 2024-08-12 08:52 | disposition home or self-care (01) ==
LOC: HO.LAB 08:51
PROVIDERS: PCP Internal Medicine; Visit Provider Internal Medicine
DX: R73.03 Prediabetes (principal); R79.9 Abnormal finding of blood chemistry, unspecified; I10 Essential (primary) hypertension; E55.9 Vitamin D deficiency, unspecified; Z12.5 Encounter for screening for malignant neoplasm of prostate
CPT/HCPCS: 36415; 80053; 80061; 81001; 82306; 84153; 85025

== ENCOUNTER 2025-02-15 08:50 | Outpatient (REF) | payer MEDICARE, SELFPAY ==
[2025-02-15 09:13] LABS: Estimated Average Glucose 120 mg/dL; Hemoglobin A1C 150.7487 umol/L; Hemoglobin A1c % 5.8 % (<6.0); Total Hemoglobin (HGBA1C) 3832.6066 umol/L
--- OUTSIDE RECORDS SUMMARY | 2025-02-15 09:22 | XMS_ITS | Patient Health Record ---
Author Organization Shan Hsu MD Address [address] [place], [place] [id number] Care Team Providers Care Preconstruction Manager Name Role Phone Shan Hsu Primary Care Provider Allergies No Known Allergies Results Component Value Reference Range Notes Liver Panel Reviewed date:02/22/2024 06:06:03 PM Interpretation: Performing Lab:[address] [phone] Notes/Report: Bilirubin Total 0.6 0.0-1.0 mg/dL Bilirubin Direct 0.2 0.0-0.5 mg/dL Aspartate Amino Transferase 22 5-37 U/L Alanine Aminotransferase 25 0-40 U/L Total Protein 7.4 6.5-8.0 g/dL Albumin Level 4.5 3.5-5.0 g/dL Alkaline Phosphatase 72 39-117 U/L Glucose Fasting Reviewed date:02/22/2024 06:05:45 PM Interpretation: Performing Lab:[address] [phone] Notes/Report: Glucose Fasting 108 60-99 mg/dL A fasting glucose from 100-125 mg/dl is considered impaired (pre-diabetes). Lipid Panel Reviewed date:02/22/2024 06:04:44 PM Interpretation: Performing Lab:[facility], [address] [place] [phone] Notes/Report: Triglycerides 65 <150 mg/dL Desirable Triglyceride: less than 150 mg/dL Borderline High Triglyceride 150-199 mg/dL High Triglyceride: 200-499 mg/dL Very High Triglyceride: greater than or equal to 5OO mg/dL Cholesterol 100 <200 mg/dL Desirable Cholesterol: less than 200 mg/dL Borderline High Cholesterol: 200-239 mg/dL High Cholesterol: greater than 239 mg/dL LDL Cholesterol Calculated 48 <100 mg/dL Desirable LDL: less than 100 mg/dL Near Optimal/Above Optimal LDL: 110-129 mg/dL Borderline High LDL: 130-159 mg/dL High LDL: 160-189 mg/dL Very High LDL: greater than or equal to 190 mg/dL HDL Cholesterol 39 >40 mg/dL Desirable HDL: greater than 40 mg/dL Note: This HDL assay may give artificially low results in patients with liver disease. Hemoglobin A1c Reviewed date:02/22/2024 06:08:36 PM Interpretation: Performing Lab:[address] [phone] Notes/Report: Hemoglobin A1c % 5.5 <6.0 % Hemoglobin A1C Reference Range Adults: 4.8 - 6.0 % Non diabetic: < 6.0 % Goal: < 7.0 % Additional Action Suggested: > 8.0 % Note: Hemoglobin A1c results are invalid for patients with abnormal amounts of HbF. Blood transfusions may impact the HbA1c concentration in the patient sample. Estimated Average Glucose 111 eAG = Estimated average glucose which is %A1C expressed as average glucose, using the formula of the N1G-Vzvobwt Average Glucose study (ADAG), Diabetes Care, Vol.31,#8, 2007 Hemoglobin A1c (Not yet revi ewed by provider) Interpretation: Performing Lab:[facility], [address] [place] [phone] Notes/Report: Hemoglobin A1c % 5.8 <6.0 % Hemoglobin A1C Reference Range Adults: 4.8 - 6.0 % Non diabetic: < 6.0 % Goal: < 7.0 % Additional Action Suggested: > 8.0 % Note: Hemoglobin A1c results are invalid for patients with abnormal amounts of HbF. Blood transfusions may impact the HbA1c concentration in the patient sample. Estimated Average Glucose 120 eAG = Estimated average glucose which is %A1C expressed as average glucose, using the formula of the Y5Q-Knibjgo Average Glucose study (ADAG), Diabetes Care, Vol.31,#8, May. 2007 Reason For Referral No Information Medications Medication SIG (Take, Route, Frequency, Duration) Notes Start Date End Date Status Lisinopril 5 MG TAKE 1 TABLET BY DONTA TH EVERY DAY for 30 Not-Taking PriLOSEC 20 MG 1 capsule Orally Onc e a day Not-Taking Vitamin D (Cholecalciferol) 25 MCG (1000 UT) 1 capsule Orally Once a day Active Metoprolol Succinate ER 50 MG 1 tablet Orally Once a day Active Atorvastatin Calcium 80 MG TAKE 1 TABLET BY MOUTH EVERY DAY Orally Once a day for 90 days Active Sertraline HCl 100 MG TAKE 1 TABLET BY M OUTH EVERY DAY for 90 Active PriLOSEC OTC 20 MG 1 tablet 30 minutes before morning meal Orally Once a day for 30 day(s) Active Aspir-Low 81 MG 1 tablet Orally Once a day for 30 day(s) Active Tylenol 8 Hour 650 MG 2 tablets as neede d Orally every 8 hrs Active Immunizations Vaccine Route Administration Date Status Comme nts Flu Vaccine IM Intramuscular 07/23/2012 Administered Fluarix Quadrivalent IM [facility]cular [facility] Quadrivalent Unknown 09/30/2016 Administered CV S Flu Vaccine Unknown 07/21/2017 Administered pt was give n vaccine at [facility] Flu[facility]ix [facility] at [facility] in [place]. Fluarix Quadrivalent Unknown 07/27/2019 Administered pt had the vaccine at the hospital. Fluarix Quadrivalent IM [facility]cular [facility] Unknown 10/04/2020 Administered Covid Covid Vaccine Unknown 10/26/2020 Administered Pfizer Fluarix Quadrivalent Unknown 07/03/2021 Administered [facility] SARS-COV-2 Pfizer Unknown 07/20/2021 Administered Fluarix Quadrivalent IM Intramuscular 07/[facility] SARS-COV-2 Pfizer Unknown 08/15/2023 Administered [facility] Unknown 08/13/2024 Administered [facility] Flu[facility]ix Quadrivalent - 150 Unknown 08/21/2024 Administered [facility] Social History Tobacco Use: Social History Observation [...] ast year? No Points 0 Interpretation Negative Problems Problem Type SNOMED Code ICD Code Onset Dates Problem Status W/U Status Risk Notes Problem 66212939 Vitamin D deficiency (E55.9) Active confirmed Problem 254213464 Elevated BUN (R79.9) Active confirmed Problem 3377863 Supraventricular tachycardia (I47.1) Active confirmed Problem 85080439 Essential hypertension (I10) Active confirmed Problem 437997499 Dilated aortic r oot (I77.810) Active confirmed Problem 138263169 Prediabetes (R73.03) Active confirmed Problem 063573829 Coronary artery 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 (I25.118) Active confirmed Problem 635657228202418 Family history o f vitamin D deficiency (Z83.49) Active confirmed Vital Signs Blood pressure diastolic 66 mm Hg 08/12/2024 fercho ght is down 9 pounds since 02-26-24 Height 70 in 08/12/2024 weight is down 9 pounds since 02-26-24 Blood pressure systolic 128 mm Hg 08/12/2024 weig ht is down 9 pounds since 02-26-24 Weight 184 lbs 08/12/2024 weight is down 9 pounds since 02-26-24 BMI 26.40 kg/m2 08/12/2024 weight is down 9 pounds since 02-26-24 Encounters Encounter Location Date Provider Diagnosis Shan Hsu MD [address] [place] [phone] 02/26/2024 Shan Hsu Prediabetes R73.03 and Coronary artery 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 I25.118 Shan Hsu MD [address] [place] [id number] 08/12/2024 Shan Hsu Coronary artery 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 I25.118 ; Annual physical exam Z00.00 ; Prediabetes R73.03 ; Essential hypertension I10 ; Vitamin D deficiency E55.9 and Depression screening Z13.31 Shan Hsu MD [address] [place] [address] [place] [phone] 04/19/2024 Shan Hsu Assessments Encounter Date Diagnosis (ICD Code) Assessment Notes Treatment Notes Treatment Clinical Notes Section Notes 02/26/2024 Prediabetes (ICD-10 - R73.03) labs reviewed, stable no need for medication at this time 02/26/2024 Coronary artery 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 (ICD-10 - I25.118) doing well.will continue current regiment, needs stress test.MESSAGE LEFT WITH DR DEL REAL IN REGARDS TO STRESS TEST , WE NEED TO KNOW IF HE WANTS US TO SEND THE ORDER TO [facility] 08/12/2024 Coronary artery 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 (ICD-10 - I25.118) need stress test from dr hooks/ RESULTS OF STRESS TEST DONE AT [facility] RECEIVED 08/12/2024 Annual physical exam (ICD-10 - Z00.00) labs reviewed and discussed with patient 08/12/2024 Prediabetes (ICD-10 - R73.03) stable, no need for medication at this time 08/12/2024 Essential hypertension (ICD-10 - I10) stable, at goal, will contiue current regiment 08/12/2024 Vitamin D deficiency (ICD-10 - E55.9) stable, will contiue current regiment 08/12/2024 Depression screening (ICD-10 - Z13.31) negative screen Plan Of Treatment Pending Test Test Name Order Date Electrocardiogram (EKG) 01/09/2018 US ABD 08/01/2022 ECHO 01/06/2017 Hemoglobin A1c 02/15/2025 Next Appt Details Provider Name:Shan san, 02/18/2025 03:30:00 PM, [address] [place] [address], Suite [facility], [place], [place], [phone], Provider Name:Shan san, 08/11/2025 07:30:00 AM, [address] [place] [address], [address] [place] [address], [phone], Provider Name:Shan san, 08/18/2025 03:30:00 PM, [address] [place] [address], [place] [address], [place], [place], [phone], Insurance Providers Payer Name Payer Address Payer Phone Subscriber Number Group Number Insured Name Patient Relationship to Insured Coverage Start Date Coverage End Date [employer] [address] [place] [address] [id number] Kevin Del Real Self - patient is the insured [facility] [address] [place], [place] [phone] [id number] Kevin Del Real Self - patient is the insured Medical (General) History Medical History History ICD Code 01/31/[address] Aargon
--- OUTSIDE RECORDS SUMMARY | 2025-02-15 09:22 | XMS_ITS ---
Author Organization Shan Hsu MD Address [address] [place], [place] [id number] Care Team Providers Care Varnisher Plasticoater Name Role Phone Shan Hsu Primary Care Provider Results Component Value Reference Range Notes Complete Blood Count Auto Di ff Reviewed date:08/12/2024 09:50:10 AM Interpretation: Performing Lab:[facility], [address] [place] [phone] Notes/Report: White Blood Count 7.1 4.8-10.8 X10*3/uL [...] NRBC Abs Auto 0.000 0.0-0.012 X10*3/uL Comprehensive [place]. Panel Fa st Reviewed date:08/12/2024 11:46:16 AM Interpretation: Performing Lab:[facility], [address] [place] [phone] Notes/Report: Sodium 137 135-145 mmol/L Potassium 4.1 3.3-5.1 mmol/L Chloride 102 96-108 mmol/L Carbon Dioxide 28 22-29 mmol/L Anion Gap 11 12-20 Blood Urea Nitrogen 18 9-16 mg/dL Creatinine 1.16 0.5-1.4 mg/dL Estimated Glomerular Filt Rate > 60 NOTE: For -Maltese individuals, multiply the result by 1.210. Chronic [...] Panel Reviewed date:08/12/2024 11:45:40 AM Interpretation: Performing Lab:[facility], [address] [place] [phone] Notes/Report: Triglycerides 44 <150 mg/dL Desirable Triglyceride: [...] (Free>4and<10) Reviewed date:08/12/2024 11:45:31 AM Interpretation: Performing Lab:[facility], [address] [place] [phone] Notes/Report: PSA,Total (Free>4and<10) 1.01 0.00-4.00 ng/mL A [...] Total Reviewed date:08/12/2024 11:46:26 AM Interpretation: Performing Lab:[facility], [address] [place] [phone] Notes/Report: Vitamin D 25-OH Total 41.8 >30 [...] t Reviewed date:08/12/2024 12:29:55 PM Interpretation: Performing Lab:[facility], [address] [place] [phone] Notes/Report: Urine, Clean Catch Color Urine Yellow Appearance Urine Clear PH 7.5 5.0-9.0 Glucose Urine UA Negative Negative mg/dL Urine Blood Negative Negative Specific [place] - Urine 1.015 1.005-1.025 Urine Protein Negative [...] Location Date Provider Diagnosis Shan Hsu MD [address] [place] [address] [place] [phone] 08/06/2024 Shan Hsu Prediabetes R73.03 ; Elevated [...] Treatment Next Appt Details Provider Name:Shan san, 02/18/2025 03:30:00 PM, [address] [place] [address], [address], [place], [place], [phone], Provider Name:Shan Dhaliwal ier, 08/11/2025 07:30:00 AM, [address], [address], [place], [place], [phone], Provider Name:Shan Dhaliwal ier, 08/18/2025 03:30:00 PM, [address], [address], [place], [phone], Progress Notes * Kevin DEL REAL MDOB: (64 yo M)Acc No.[id number]:08/06/2024 Progress Note Patient:?Kevin DEL REAL Preeti Provider:?Shan Hsu MD :1960???Age:64 Y???Sex:Male Malcolm e:08/06/2024 Address:[address] [place], [place] [id number] Subjective: * Chief Complaints: * ???1. FASTING LABS. * Medical History:? Objective: * Vitals:? Assessment: * Assessment: 1.?Prediabetes - R73.03???2. ?Elevated BUN - R79.9???3.?Essential hypertension - I10???4.?Vitamin D deficiency - E55.9??? Plan: * Treatment: 2.?Elevated BUN?LAB: Complete Blood Count Auto Diff (Collection Date & Time - 08/12/2024 09:02 AM) ?LAB: [facility] [place]. Panel Fast (Collection Date & Time - 08/12/2024 09:02 AM) ?LAB: Lipid Panel (Collection Date & Time - 08/12/2024 09:02 AM) ?LAB: PSA,Total (Free>4and<10) (Collection Date & Time - 08/12/2024 09:02 AM) ?LAB: Vitamin D 25-OH Total (Collection Date & Time - 08/12/2024 09:02 AM) ?LAB: UA ClnCatch+Micro w/rflx Cult (Collection Date & Time - 08/12/2024 09:00 AM) 3.?Essential hypertension?LAB: Complete Blood Count Auto Diff (Collection Date & Time - 08/12/2024 09:02 AM) ?LAB: [facility] [place]. Panel Fast (Collection Date & Time - 08/12/2024 09:02 AM) ?LAB: Lipid Panel (Collection Date & Time - 08/12/2024 09:02 AM) ?LAB: PSA,Total (Free>4and<10) (Collection Date & Time - 08/12/2024 09:02 AM) ?LAB: Vitamin D 25-OH Total (Collection Date & Time - 08/12/2024 09:02 AM) ?LAB: UA ClnCatch+Micro w/rflx Cult (Collection Date & Time - 08/12/2024 09:00 AM) 4.?Vitamin D deficiency?LAB: Complete Blood Count Auto Diff (Collection Date & Time - 08/12/2024 09:02 AM) ?LAB: [facility] [place]. Panel Fast (Collection Date & Time - 08/12/2024 09:02 AM) ?LAB: Lipid Panel (Collection Date & Time - 08/12/2024 09:02 AM) ?LAB: PSA,Total (Free>4and<10) (Collection Date & Time - 08/12/2024 09:02 AM) ?LAB: Vitamin D 25-OH Total (Collection Date & Time - 08/12/2024 09:02 AM) ?LAB: UA ClnCatch+Micro w/rflx Cult (Collection Date & Time - 08/12/2024 09:00 AM) * * The named appointment provid er may or may not be the originator of this progress note, and it is not deemed complete until electronically signed by the appointment provider. Sign off status: Pending * Provider:?Shan Hsu MD Date:?1 Generated for Anamaria garcia/Shila/Garretitting on:?02/15/2025 09:22 AM EDT
--- OUTSIDE RECORDS SUMMARY | 2025-02-15 09:23 | XMS_ITS ---
Author Organization Shan Hsu MD Address [address] [place], [place] [id number] Care Team Providers Care Ward Secretary Name Role Phone hSan Hsu Primary Care Provider [phone] REASON FOR VISIT fasting lipids Encounters Encounter Location Date Provider Diagnosis Shan Hsu MD [address] [place] [phone] 02/07/2025 Shan Hsu Prediabetes R73.03 and Coronary artery 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 I25.118 Assessments Encounter Date Diagnosis (ICD Code) Assessment Notes Treatment Notes Treatment Clinical Notes Section Notes 02/07/2025 Prediabetes (ICD-10 - R73.03) 02/07/2025 Coronary artery 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 (ICD-10 - I25.118) Plan Of Treatment Pending Test Test Name Order Date Liver Panel 02/07/2025 Glucose Fasting 02/07/2025 Lipid Panel with Reflex 02/07/2025 Hemoglobin A1c 02/07/2025 Next Appt Details Provider Name:Shan san, 02/18/2025 03:30:00 PM, [address], [address], [place], [place], [phone], Provider Name:Shan san, 08/11/2025 07:30:00 AM, [address], [address], [place], [place], [phone], Provider Name:Shan Dhaliwal ier, 08/18/2025 03:30:00 PM, [address], [address], [place], [phone], Progress Notes * Kevin DEL REAL MDOB: (64 yo M)Acc No.[id number]:02/07/2025 Progress Note Patient:?Kevin DEL REAL Provider:?Shan Hsu MD :1960???Age:64 Y???Sex:Male Malcolm e:02/07/2025 Address:[address] [place] [address], [place] [address] [id number] Subjective: * Chief Complaints: * ???1. Fasting lipids. * Medical History:? Objective: * Vitals:? Assessment: * Assessment: 1.?Prediabetes - R73.03 (Estela maria elena)???2.?Coronary artery 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 - I25.118??? Plan: * Treatment: 2.?Coronary artery disease o f [place] artery of [place] heart with stable angina pectoris?LAB: Liver Panel ?LAB: Glucose Fasting ?LAB: Lipid Panel with Reflex ?LAB: Hemoglobin A1c * * The named appointment provid er may or may not be the originator of this progress note, and it is not deemed complete until electronically signed by the appointment provider. Sign off status: Pending * Provider:?Shan Hsu MD Date:?0 02/07/2025 Generated for Anamaria garcia/Shila/eTgagesmitting on:?02/15/2025 09:22 AM EDT
--- OUTSIDE RECORDS SUMMARY | 2025-02-15 09:23 | XMS_ITS ---
Author Organization Shan Hsu MD Address [address] [place], [place] [id number] Care Team Providers Care Station Agent Name Role Phone Shan Hsu Primary Care [...] kg/m2 08/12/2024 weight is down 9 pounds [facility] - Encounters Encounter Location Date Provider Diagnosis Shan Hsu MD [address] [place] [address] Drive [address] [place] [phone] 08/12/2024 Shan Hsu Coronary artery disease of [place] artery of [place] heart with stable angina pectoris I25.118 ; Annual physical exam Z00.00 ; Prediabetes R73.03 ; Essential hypertension I10 ; Vitamin D deficiency E55.9 and Depression screening Z13.31 Assessments Encounter Date Diagnosis (ICD Code) Assessment Notes Treatment Notes Treatment Clinical Notes Section Notes 08/12/2024 Coronary artery disease of [place] artery of [place] heart with stable angina pectoris (ICD-10 - I25.118) need stress test from dr hooks/ RESULTS OF STRESS TEST DONE AT [facility] RECEIVED 08/12/2024 Annual physical exam (ICD-10 [...] artery disease of n ative artery of [place]oon[place] heart with stable angina pectoris need stress test from dr hooks/ RESULTS OF STRESS TEST DONE AT [facility] RECEIVED Annual physical exam labs reviewed and d iscussed with patient Prediabetes stable, no need for medication at this time Essential hypertension stable, at goal, will contiue current regiment Vitamin D deficiency stable, will contiu e current regiment Depression screening negative screen Next Appt Details Follow Up: 6 Months, Reason: Provider Name:Shan Dhaliwal ier, 02/18/2025 03:30:00 PM, [address], [address], [place], [phone], Provider Name:Shan Dhaliwal ier, 08/11/2025 07:30:00 AM, [address], [address], [place], [phone], Provider Name:Shan Dhaliwal ier, 08/18/2025 03:30:00 PM, [address], [address], [place], [phone], Progress Notes * Kevin DEL REAL MDOB: (64 yo M)Acc No.[id number]:08/12/2024 Progress Notes Patient:?Kevin Del Real Provider:?Shan Hsu MD :1960???Age:64 Y???Sex:Male Malcolm e:08/12/2024 Address:[address] [place] [address] [facility] Subjective: * Chief Complaints: * ???Overdue for Colorectal Ca ncer ScreeningAnnual * HPI: ???Depression Screening:?PHQ-9?Little interest or pleasure in doing things?Not at all,?Feeling down, depressed, or hopeless?Not at all,?Trouble falling or staying asleep, or sleeping too much?Not at all,?Feeling tired or having little energy?Not at all,?Poor appetite or overeating?Not at all,?Feeling bad about yourself or that you are a failure, or have let yourself or your family down?Not at all,?Trouble concentrating on things, such as reading the newspaper or watching television?Not at all,?Moving or speaking so slowly that other people could have noticed; or the opposite, being so fidgety or restless that you have been moving around a lot more than usual?Not at all,?Thoughts that you would be better off or of hurting yourself in some way?Not at all,?Total Score?0.?Interpretation and Intervention?Depression Screening Findings?Negative,?Follow-Up for Depression?: review of PHQ-9 found negative result, no follow-up needed.?Communication Needs:?Communication Needs?Does the patient have a hearing impairment?No,?Does the patient have a vision impairment??Yes,?If yes, what is the vision impairment??Glasses,?Does the patient have a cognition impairment??No.?Fall Risk:?History?Have you had any falls with injury in the past year??No,?Have you had two or more falls in the past year??No.?SDOH Questions:?SDOH Questions?In the past year have you been worried about losing housing??No,?In the past year have you or any family members you live with been unable to get any of the following when it was really needed? Check all that apply:?Food.?Symptom(s):? patient is a 64 yo male here for annual visit with review of recent labs and follow up of chronic issues, had stress test and was good had nuclear and was normal. * ROS:?General/Constitutional:?Patient denies?fatigue , headache.?Change in appetite?denies.?Chills?denies.?Fever?denies.?Ophthalmologic:?Blurred vision?denies.?Discharge?denies.?Pain?denies.?ENT:?Patient denies?decreased sense of smell , any loss of taste , sore throat.?Decreased hearing?denies.?Sore throat?denies.?Swollen glands?denies.?Endocrine:?Cold intolerance?denies.?Excessive thirst?denies.?Heat intolerance?denies.?Weight loss?denies.?Respiratory:?Cough?denies.?Shortness of breath at rest?denies.?Shortness of breath with exertion?denies.?Wheezing?denies.?Cardiovascular:?Chest pain at rest?denies.?Chest pain with exertion?denies.?Irregular heartbeat?denies.?Shortness of breath?denies.?Gastrointestinal:?Abdominal pain?denies.?Change in bowel habits?denies.?Diarrhea?denies.?Nausea?denies.?Rectal bleeding?denies.?Vomiting?denies .?Genitourinary:?Blood in urine?denies.?Difficulty urinating?denies.?Frequent urination?denies.?Musculoskeletal:?Patient denies?muscle aches.?Painful joints?denies.?Weakness?denies.?Peripheral Vascular:?Patient denies?red and blue toes.?Skin:?Dry skin?denies.?Itching?denies.?Denies?Mole(s),? changes in moles, new moles or any lesions of concern.?Denies?Photosensitivity.?Rash?denies.?Neurologic:?Dizziness?denies.?Fainting?denies.?Headache?denies.? * Medical History:? * Surgical History:? * Hospitalization/Major Diagno stic Procedure:? * Family History:?Father: dece ased 95 yrs, diagnosed with Diabetes.?Mother: 90 yrs.?1 brother(s) , 1 sister(s) . 3 son(s) . .? Father Covid Mother healthy no substance abuse in the family mother depression and Bipolar, No pertinent family medical history, Denies mental health/substance abuse family history, Denies mental health/substance abuse family history. * Social History:?Tobacco Use:?Tobacco Use/Smoking?Patient is a?nonsmoker,?Additional Findings: Tobacco Non-User?Current non-smoker, currently using no form of tobacco.?Drugs/Alcohol:?Alcohol Screen?Did you have a drink containing alcohol in the past year??No,?Points?0,?Interpretation?Negative.?Miscellaneous:?Caffeine: 3-4 cups per day. Children: yes. Community involvements: yes. Exercise: yes, walks 5 times a week2 -3 miles. Home smoke detector use: yes. Housing: owning. Living with: spouse. Marital status: . Occupation: weeks/months/years, works full-time. Pets: none, 1 dog. no Travel outside of the [place]. * Medications:?TakingPriLOSEC OTC 20 MG Tablet Delayed Release 1 [...] reviewed and reconciled with the patient * Allergies:?N.K.D.A.yes[Aller gies Verified] Objective: * Vitals:?Ht: 70, Wt:184, BMI: 26.40, BP:128/66 weight is down 9 pounds since 02-26-24. * ???Past Orders: ???Lab:Lipid Panel (Order Da te - 08/06/2024) (Collection Date - 08/12/2024) ? Value Reference Range ?Triglycerides 44 <150 - mg/dL ?Cholesterol 85 <200 - m g/dL ?LDL Cholesterol Calculated 40 <100 - mg/dL ?HDL Cholesterol 37 L >40 - mg/dL ???Lab:PSA,Total (Free>4and< 10) (Order Date - 08/06/2024) (Collection Date - 08/12/2024) ? Value Reference Range ?PSA,Total (Free>4and<10) 1.01 0.00-4.00 - ng/mL ???Lab:Vitamin D 25-OH Total (Order Date - 08/06/2024) (Collection Date - 08/12/2024) ? Value Reference Range ?Vitamin D 25-OH Total 41.8 >30 - ng/mL ???Lab:UA ClnCatch+Micro w/r flx Cult (Order Date - 08/06/2024) (Collection Date - 08/12/2024) ? Value Reference Range ?Color Urine Yellow - ?Appearance Urine Clear - ?PH 7.5 5.0-9.0 - ?Glucose Urine UA Negative Neg ative - mg/dL ?Urine Blood Negative Negative - ?Specific [place] - Urine 1.015 1.005-1.025 - ?Urine Protein Negative Neg-Tr ananth - mg/dL ?Urine Ketones Negative Negati ve - mg/dL ?Nitrite Urine Negative Negati ve - ?Leukocyte Esterase Urine Negative Negative - ?RBC Urine 0-2 0-2 - /HPF ?WBC Urine 0-5 0-5 - /HPF ?Squamous Epithelial Cell Urine 0-2 0-2 - /HPF ?Bacteria Urine None Seen None Seen - ?Hyaline Casts Urine 0-2 0-2 - /LPF ???Lab:Complete Blood Count Auto Diff (Order Date - 08/06/2024) (Collection Date - 08/12/2024) ? Value Reference Range ?White Blood Count 7.1 4. 8-10.8 - X10*3/uL ?Red Blood Count 4.40 L 4.60 -5.80 - X10*6/uL ?Hemoglobin 14.2 14.0-18.0 - g/dl ?Hematocrit 39.8 L 42.0-52.0 - % ?Mean Corpuscular Volume 90.5 80.0-98.0 - fL ?Mean Corpuscular Hemoglobin 32.3 27.0-33.0 - pg ?Mean Corpuscular HGB Conc 35.7 31.0-36.0 - g/dl ?Red Cell Distribution Width 12.0 11.0-16.0 - % ?Platelet Count 189 160-4 00 - X10*3/uL ?Mean Platelet Volume 9.9 9.4-12.4 - fL ?Neutrophils Percent Auto 61.7 45-73 - % ?Imm Gran Pct Auto 0.3 0. 0-0.4 - % ?Lymphocytes Percent Auto 25.7 20-40 - % ?Monocytes Percent Auto 10.9 2-11 - % ?Eosinophils Percent Auto 0.7 0-4 - % ?Basophils Percent Auto 0.7 0-2 - % ?NRBC Pct Auto 0.0 0.0-0. 2 - /100WBC ?Neutrophils Absolute Auto 4.4 2.0-8.3 - x10*3/uL ?Imm Gran Abs Auto 0.02 0. 00-0.03 - X10*3/uL ?Lymphocytes Absolute Auto 1.8 1.2-4.9 - X10*3/uL ?Monocytes Absolute Auto 0.8 0.1-1.2 - X10*3/uL ?Eosinophils Absolute Auto 0.1 0.0-0.4 - X10*3/uL ?Basophils Absolute Auto 0.1 0.0-0.2 - X10*3/uL ?NRBC Abs Auto 0.000 0.0-0. 012 - X10*3/uL ???Lab:Comprehensive [place]. P tyrone Fast (Order Date - 08/06/2024) (Collection Date - 08/12/2024) ? Value Reference Range ?Sodium 137 135-145 - mmo l/L ?Bilirubin Total 0.6 0.0- 1.0 - mg/dL ?Aspartate Amino Transferase 34 5-37 - U/L ?Alanine Aminotransferase 28 0-40 - U/L ?Total Protein 7.1 6.5-8. 0 - g/dL ?Albumin Level 4.5 3.5-5. 0 - g/dL ?Alkaline Phosphatase 67 39-117 - U/L ?Potassium 4.1 3.3-5.1 - mmol/L ?Chloride 102 96-108 - mm ol/L ?Carbon Dioxide 28 22-29 - mmol/L ?Anion Gap 11 L 12-20 - ?Blood Urea Nitrogen 18 H 9-16 - mg/dL ?Creatinine 1.16 0.5-1.4 - mg/dL ?Estimated Glomerular Filt Rate > 60 - ?Glucose Fasting 116 H 60-9 9 - mg/dL ?Calcium 10.3 H 8.4-10.2 - m g/dL * Examination: ???General Examination: ?GENERAL APPEARANCE:?well developed, well nourished, in no acute distress.?HEAD:?normocephalic, atraumatic.?EYES:?pupils equal, round, reactive to light and accommodation, sclera non-icteric.?EARS:?normal.?ORAL CAVITY:?mucosa moist.?THROAT:?clear.?NECK/THYROID:?neck supple, full range of motion, no cervical lymphadenopathy, no bruits.?SKIN:?warm and dry, no suspicious lesions.?HEART:?regular rate and rhythm, S1, S2 normal, no murmurs.?LUNGS:?clear to auscultation bilaterally.?ABDOMEN:?soft, nontender, nondistended, bowel sounds present, normal, no organomegaly , no masses palpable.?RECTAL EXAM:?declined.?MALE GENITOURINARY:?not examined.?EXTREMITIES:?no clubbing, cyanosis, or edema.?NEUROLOGIC:?nonfocal, motor strength normal upper and lower extremities, sensory exam intact.? Assessment: * Assessment: 1.?Annual physical exam - Z0 0.00 (Primary)?2.?Coronary artery disease of [place]oon[place] artery of [place] heart with stable angina pectoris - I25.118?3.?Prediabetes - R73.03?4.?Essential hypertension - I10?5.?Vitamin D deficiency - E55.9?6.?Depression screening - Z13.31? Plan: * Treatment: 2.?Coronary artery disease o f [place] artery of [place] heart with stable angina pectoris? Notes: need stress test from dr hooks/ RESULTS OF STRESS TEST DONE AT [facility] RECEIVED?? 3.?Prediabetes? Notes: stable, no need for medication at this time?? 4.?Essential hypertension? Notes: stable, at goal, will contiue current regiment?? 5.?Vitamin D deficiency? Notes: stable, will contiue current regiment?? 6.?Depression screening? Notes: negative screen?? * Procedure Codes:? * Preventive Medicine:? ??Counseling:?Care goal follow-up plan:?Counseling for abnormal BMI provided?Yes,?Above Normal BMI Follow-up?Giving encouragement to exercise.? * Follow Up:?6 Months * * Sign off status: Completed true * Provider:?Shan Hsu MD Date:?1 Generated for Anamaria garcia/Shila/eTransmitting on:?02/15/2025 09:22 AM EDT History and Physical Notes * HPI (History [...] patient have a vision impairmen t?: Yes ?If yes, what is the vision impairment?: Glasses Does the patient have a cognition impair ment?: No Examination Category Sub-Category Detail Notes Category Not es General Examination GENERAL APPEARANCE: well dev eloped, well nourished, in no acute distress HEAD: normocephalic, atrau matic EYES: pupils equal, round, reactive to light and accommodation, sclera non- icteric EARS: normal THROAT: clear NECK/THYROID: neck supple, [...]
[2025-02-15 10:03] LABS: Alanine Aminotransferase 31 U/L (0-40); Albumin Level 4.5 g/dL (3.5-5.0); Alkaline Phosphatase 80 U/L (39-117); Aspartate Amino Transferase 32 U/L (5-37); Bilirubin Direct 0.2 mg/dL (0.0-0.5); Bilirubin Total 0.6 mg/dL (0.0-1.0); Cholesterol 109 mg/dL (<200); Glucose Fasting 107 mg/dL (60-99); Total Protein 7.1 g/dL (6.5-8.0); Triglycerides 92 mg/dL (<150)
[2025-02-15 12:23] LABS: HDL Cholesterol 39 mg/dL (>40); LDL Cholesterol Calculated 52 mg/dL (<100)
[2025-02-15 13:58] LABS: Reflex LDLD? No
== END 2025-02-15 08:51 | disposition home or self-care (01) ==
LOC: HO.LAB 08:50
PROVIDERS: PCP Internal Medicine; Visit Provider Internal Medicine
DX: R73.03 Prediabetes (principal); I25.118 Atherosclerotic heart disease of native coronary artery with other forms of angina pectoris
CPT/HCPCS: 36415; 80061; 80076; 82947; 83036

== ENCOUNTER 2025-04-12 15:34 | Outpatient (AMB) | payer MEDICARE, SELFPAY ==
--- NOTE | 2025-04-12 15:39 | A.OFFVIS_ITS ---
Vital Signs 04/12/25 15:42 Height 5 ft 11 in Weight 180 lb BMI 25.1 BP 120/72 Blood Pressure Location Lt brachial Position Sitting Pulse 54 Pulse Source Monitor Intake Visit Reasons: 1 yr follow up Allergies No Known Allergies Allergy (Verified 08/29/20 15:39) Medication List - Last Reconciled 04/12/25 by Kvng Hooks MD acetaminophen (Tylenol) 325 mg PO QID PRN aspirin (Adult Low Dose Aspirin) 81 mg PO DAILY atorvastatin 80 mg PO DAILY cholecalciferol (vitamin D3) 25 mcg PO DAILY metoprolol succinate ER 50 mg PO DAILY nitroglycerin 0.4 mg sublingual omeprazole 20 mg PO DAILY sertraline 100 mg PO DAILY HPI Comments Details: Sam comes for follow-up. Overall he has been doing well from cardiac perspective. He has been remaining active. Occasional jaw discomfort which is not bothersome or limiting for him at this point time unclear whether this exertional. His myocardial perfusion imaging last year was within normal li mits. He has no prolonged palpitation irregular heartbeat. His last LDL is well optimized. He is currently having increased personal stress although he has been very regularly taking his medications. Denies any lightheadedness, syncope. No heart failure symptoms. [facility] Medical History Thoracic aortic aneurysm CAD (coronary artery disease) Hyperlipidemia HTN (hypertension) SVT (supraventricular tachycardia) Surgical History Stented coronary artery Family History Father CVD (cardiovascular disease) Diabetes Mother No problems noted. Social History Patient Tobacco Use Status: Never used Tobacco Review of Systems Const Reports no additional complaints and Denies weakness Eyes Reports no additional complaints ENT Reports no additional complaints and Denies dizziness Card Denies chest pain, Denies chest pain with activity, Denies syncope, Denies rapid heart rate, Denies pedal edema, Denies edema, Denies leg edema, Denies lightheadedness, Denies palpitations, Denies dyspnea, Denies dyspnea on exertion and Denies orthopnea Resp Denies cough, Denies dyspnea and Denies dyspnea on exertion GI Denies hematochezia and Denies change in stool character Musc Denies abnormal gait, Denies muscle cramps, Denies muscle weakness, Denies numbness, Denies radiating pain into limb and Denies tingling Neuro Denies abnormal gait, Denies dizziness, Denies syncope, Denies numbness, Denies tingling and Denies weakness Endo Denies palpitations Physical Exam Vital Signs: Last Vital Signs Pulse 54 04/12/25 15:42 BP 120/72 04/12/25 15:42 BMI result Body Mass Index 25.1 Const General: cooperative, comfortable, no acute distress, alert and awake Nutritional Appearance: average body habitus Orientation/consciousness: patient oriented x3 Limitations: no limitations Neck Neck: Yes trachea midline, Yes supple and Yes no JVD Carotids: no bruits Resp Effort & Inspection: normal respiratory effort Auscultation: clear to auscultation bilaterally Cardio Jugular venous distension: no JVD Palpation: normal PMI Rate: regular rate Rhythm: regular rhythm Heart sounds: S1 normal heart sound present and S2 normal heart sound present Skin General skin exam: no rashes or lesions noted Neuro General: patient oriented x3 and no focal motor deficits Extrem General: Yes no clubbing, cyanosis or edema Psych Appearance: grossly normal Office Procedures EKG Details: EKG shows sinus bradycardia 54 beats per minute with T-wave inversions in inferior leads as well as T-wave inversions in the anterolateral leads, appear to be new compared to prior EKG [id number], Complete Assessment & Plan Assessment & Plan (1) CAD (coronary artery disease): Comment: progressive angina with severe 2 vessel disease with chronic total occlusion of LAD in the mid segment as well as chronic total occlusion of OM branch Code(s): I25.10 - Atherosclerotic heart disease of [place] coronary artery without angina pectoris Category: Medical Plan: Coronary artery disease with no current symptoms that are concerning for myocardial ischemia. Does not have new EKG changes which were discussed with him. Given lack of symptoms and myocardial perfusion imaging within last year within normal limits would monitor clinically. Advised to call me with any new symptoms that are worsening. For now continue aggressive medical therapy. Continue aspirin lifelong. Continue high-intensity statin therapy with well optimized LDL at this point time. Blood pressure is currently well optimized. Importance of regular physical activity was discussed. Encouraged to call me with new symptoms. (2) SVT (supraventricular tachycardia): Code(s): I47.1 - Supraventricular tachycardia Category: Medical Plan: Supraventricular tachycardia has remained suppressed on metoprolol therapy. Has done well with metoprolol therapy. Continue the same. Avoidance of stimulants was discussed. Stress mitigation strategies were discussed. Will follow up in the clinic in 1 year's time, sooner p.r.n.. Thank you for allowing me to partake in his care Coding Level of Care Code Est Pt Level 4 (39098) Complex EM visit Add On G2211 Diagnoses CAD (coronary artery disease) I25.10 SVT (supraventricular tachycardia) I47.1 CPT Codes EKG - CPT: 29732-[id number], Complete ([id number])
[2025-04-12 15:42] VITALS: BP 120/72; PULSE 54; BMI 25.1
--- OUTSIDE RECORDS SUMMARY | 2025-04-12 16:14 | XMS_ITS | Patient Health Record ---
Author Organization [facility] Address [address] [place] [id number] Care Team Providers Care Senior Safety Support Manager Name Role Phone Shan Hsu MD Primary Care Provider Lula Aragon Jr, Kareem Unavailable [phone] Reason For Referral No Information Medications Medication SIG (Take, Route, Frequency, Duration) Notes Start Date End Date Status Keflex 500 MG 1 capsule Orally ethan ry 6 hrs for 10 days 05/04/2019 Active Keflex 500 MG 1 capsule Orally ethan ry 6 hrs for 10 day(s) 09/26/2017 Active Plan Of Treatment No Information Insurance Providers Payer Name Payer Address Payer Phone Subscriber Number Group Number Insured Name Patient Relationship to Insured Coverage Start Date Coverage End Date [facility] [address] [place], [place] [id number] [phone] [id number] KIANA DEL REAL Self - patient is the insured
--- OUTSIDE RECORDS SUMMARY | 2025-04-12 16:15 | XMS_ITS | Patient Health Record ---
Author Organization Shan Hsu MD Address [address] [place], [place] [id number] Care Team Providers Care Accounting Systems Manager Name Role Phone Shan Hsu Primary Care Provider [phone] Allergies No Known Allergies Results Component Value Reference Range Notes Liver Panel Reviewed date:02/15/2025 03:28:07 PM Interpretation: Performing Lab:[address] [id number] Notes/Report: Bilirubin Total 0.6 0.0-1.0 mg/dL Bilirubin Direct 0.2 0.0-0.5 mg/dL Aspartate Amino Transferase 32 5-37 U/L Alanine Aminotransferase 31 0-40 U/L Total Protein 7.1 6.5-8.0 g/dL Albumin Level 4.5 3.5-5.0 g/dL Alkaline Phosphatase 80 39-117 U/L Glucose Fasting Reviewed date:02/15/2025 04:51:16 PM Interpretation: Performing Lab:[address] [phone] Notes/Report: Glucose Fasting 107 60-99 mg/dL A fasting glucose from 100-125 mg/dl is considered impaired (pre-diabetes). Lipid Panel with Reflex Reviewed date:02/15/2025 04:51:32 PM Interpretation: Performing Lab:[facility], [address] [place] [phone] Notes/Report: Triglycerides 92 <150 mg/dL Desirable Triglyceride: less than 150 mg/dL Borderline High Triglyceride 150-199 mg/dL High Triglyceride: 200-499 mg/dL Very High Triglyceride: greater than or equal to 5OO mg/dL Cholesterol 109 <200 mg/dL Desirable Cholesterol: less than 200 mg/dL Borderline High Cholesterol: 200-239 mg/dL High Cholesterol: greater than 239 mg/dL LDL Cholesterol Calculated 52 <100 mg/dL Desirable LDL: less than 100 mg/dL Near Optimal/Above Optimal LDL: 110-129 mg/dL Borderline High LDL: 130-159 mg/dL High LDL: 160-189 mg/dL Very High LDL: greater than or equal to 190 mg/dL HDL Cholesterol 39 >40 mg/dL Desirable HDL: greater than 40 mg/dL Note: This HDL assay may give artificially low results in patients with liver disease. Hemoglobin A1c Reviewed date:02/15/2025 10:12:04 AM Interpretation: Performing Lab:[facility], [address] [place] [phone] Notes/Report: Hemoglobin A1c % 5.8 <6.0 % [...] average glucose, using the formula of the T9M-Ayzbipn Average Glucose study (ADAG), Diabetes Care, Vol.31,#8, [...] Once a day for 30 day(s) Active PriLOSEC 20 MG 1 capsule Orally Onc e a day Not-Taking Nitroglycerin 0.4 MG 1 tablet under the tongue and allow to dissolve as needed. Take every 5 minutes up to 3 times if chest pain persists Sublingual Three times a day for 30 days 02/18/2025 Active Vitamin D (Cholecalciferol) 25 MCG (1000 [...] 07/23/2012 Administered Fluarix Quadrivalent IM Intramuscular 08/08/2015 Administe red Fluarix Quadrivalent Unknown 09/30/2016 Administered CV S Flu Vaccine Unknown 07/21/2017 Administered [place] was [place] [facility] Fluarix Quadrivalent IM Intramuscular 08/16/2018 Administe red Pt was given the vaccine at [facility] in [place]. Fluarix Quadrivalent Unknown 07/27/2019 Administered pt had the vaccine at the hospital. Fluarix Quadrivalent IM Intramuscular 07/18/2020 Administe red Covid Vaccine Unknown 10/04/2020 Administered Covid Covid Vaccine Unknown 10/26/2020 Administered Pfizer Fluarix Quadrivalent Unknown 07/03/2021 Administered CV S SARS-COV-2 Pfizer Unknown 07/20/2021 Administered Fluarix Quadrivalent IM Intramuscular [facility] Quadrivalent IM Intramuscular 08/07[facility]2023 [facility] SARS-COV-2 Pfizer Unknown 08/15/2023 Administered [facility] Shingrix Unknown 08/13/2024 Administered [facility] Fluarix Quadrivalent - 150 Unknown 08/21/2024 Administered [facility] Social History Tobacco Use: Social History Observation [...] Status W/U Status Risk Notes Problem Neuropathy (486800629) Neuropathy (G62.9) Active confirmed Problem 76545065 Vitamin D deficiency (E55.9) Active confirmed Problem 125940950 Elevated BUN (R79.9) Active confirmed Problem 5947277 Supraventricular tachycardia (I47.1) Active confirmed Problem 42922885 Essential hypertension (I10) Active confirmed Problem 234872461 Dilated aortic r oot (I77.810) Active confirmed Problem 374733261 Prediabetes (R73.03) Active confirmed Problem 597395729 Coronary artery disease of [place] artery of [place] heart with stable angina pectoris (I25.118) Active confirmed Problem 080913955272603 Family history o f vitamin D deficiency (Z83.49) Active confirmed Vital Signs Blood pressure diastolic 64 mm Hg 02/18/2025 fercho ght is up 8 pounds since 08-12-24 Height 70 in 02/18/2025 weight is up 8 pounds since 08-12-24 Blood pressure systolic 120 mm Hg 02/18/2025 weig ht is up 8 pounds since 08-12-24 Weight 192 lbs 02/18/2025 weight is up 8 pounds since 08-12-24 BMI 27.55 kg/m2 02/18/2025 weight is up 8 pounds since 08-12-24 Encounters Encounter Location Date Provider Diagnosis Shan Hsu MD [address] [place] [id number] 08/12/2024 Shan Hsu Coronary artery disease of [place] artery of [place] heart with stable angina pectoris I25.118 ; Annual physical exam Z00.00 ; Prediabetes R73.03 ; Essential hypertension I10 ; Vitamin D deficiency E55.9 and Depression screening Z13.31 Shan Hsu MD [address] [place] [id number] 02/18/2025 Shan Hsu Neuropathy G62.9 ; Coronary artery disease of [place] artery of [place] heart with stable angina pectoris I25.118 and Prediabetes R73.03 Shan Hsu MD [address] [place] [address] Drive [address] [place] [id number] 04/19/2024 Shan Hsu Assessments Encounter Date Diagnosis (ICD Code) Assessment Notes Treatment Notes Treatment Clinical Notes Section Notes 08/12/2024 Coronary artery disease of [place] artery of [place] heart with stable angina pectoris (ICD-10 - I25.118) need stress test from dr hooks/ RESULTS OF STRESS TEST DONE AT [facility] RECEIVED 08/12/2024 Annual physical exam (ICD-10 - Z00.00) labs reviewed and discussed with patient 02/18/2025 Neuropathy (ICD-10 - G62.9) has some sensation on the bottoms of feet. may be related to the elevated sugars 08/12/2024 Prediabetes (ICD-10 - R73.03) stable, no need for medication at this time 02/18/2025 Coronary artery disease of [place] artery of [place] heart with stable angina pectoris (ICD-10 - I25.118) stable, will continue current regiment 08/12/2024 Essential hypertension (ICD-10 - I10) stable, at goal, will contiue current regiment 02/18/2025 Prediabetes (ICD-10 - R73.03) stable, no need for medication at this time 08/12/2024 Vitamin D deficiency (ICD-10 - E55.9) stable, will contiue current regiment 08/12/2024 Depression screening (ICD-10 - Z13.31) negative screen Plan Of Treatment Pending Test Test Name Order Date Electrocardiogram (EKG) 01/09/2018 US ABD 08/01/2022 ECHO 01/06/2017 Next Appt Details Provider Name:Shanisiah Dhaliwal ier, 08/11/2025 07:30:00 AM, [address] [place] [address], [address], [phone], Provider Name:Shan Juan Alberto Madhuri ier, 08/18/2025 03:30:00 PM, [address] [place] [address], [address], [phone], Insurance Providers Payer Name Payer Address Payer Phone Subscriber Number Group Number Insured Name Patient Relationship to Insured Coverage Start Date Coverage End Date MEDICARE [facility] [address] [place] [address] [id number] Kevin Del Real Self - patient is the insured [employer] [address] [place], [place] [id number] [phone] [id number] Kevin Del Real Self - patient is the insured Medical (General) History Medical History History ICD Code 01/31/[address] Aragon
== END 2025-04-12 16:02 | disposition home or self-care (01) ==
LOC: HO.HCS 15:34
PROVIDERS: PCP Internal Medicine; Visit Provider Internal Medicine Cardiovascular Disease
DX: I25.10 Atherosclerotic heart disease of native coronary artery without angina pectoris (principal); I47.10 Supraventricular tachycardia, unspecified
CPT/HCPCS: 93010; 99214; G2211

== ENCOUNTER → 2025-04-12 15:34 | Outpatient (BNVA) | payer MEDICARE, SELFPAY | PROVIDERS: PCP Internal Medicine; Visit Provider Internal Medicine Cardiovascular Disease | DX: I25.10 Atherosclerotic heart disease of native coronary artery without angina pectoris (principal); I47.10 Supraventricular tachycardia, unspecified; Z79.899 Other long term (current) drug therapy | CPT/HCPCS: 93005; 99212 ==

== ENCOUNTER 2025-08-18 08:24 | Outpatient (REF) | payer MEDICARE, SELFPAY ==
--- OUTSIDE RECORDS SUMMARY | 2024-02-26 10:30 | XMS_ITS ---
Author Organization Shan Hsu MD Address [address] [place], [place] [id number] Care Team Providers Care Instructor Creeler Name Role Phone Shan Hsu Primary Care Provider Allergies No Known Allergies REASON FOR VISIT 6 MO F/U, No Covid symptoms Medications Medication SIG (Take, Route, Frequency, Duration) Notes Start Date End Date Status Atorvastatin Calcium 80 MG TAKE 1 TABLET BY MOUTH EVERY DAY for 90 Active Sertraline HCl 100 MG TAKE 1 TABLET BY M OUTH EVERY DAY for 90 Active Metoprolol Succinate ER 50 MG 1 tablet Orally Once a day Active PriLOSEC 20 MG 1 capsule Orally Onc e a day Not-Taking Lisinopril 5 MG TAKE 1 TABLET BY DONTA TH EVERY DAY for 30 Not-Taking Vitamin D (Cholecalciferol) 25 MCG (1000 UT) 1 capsule Orally Once a day Active Aspir-Low 81 MG 1 tablet Orally Once a day for 30 day(s) Active Tylenol 8 Hour 650 MG 2 tablets as neede d Orally every 8 hrs Active PriLOSEC OTC 20 MG 1 tablet 30 minutes before morning meal Orally Once a day for 30 day(s) Active Vital Signs Blood pressure systolic 110 mm Hg 02/26/20 24 Blood pressure diastolic 64 mm Hg 024 Height 70 in 02/26/2024 Weight 193 lbs 02/26/2024 BMI 27.69 kg/m2 02/26/2024 weight is up 8 pounds since 11-04-23 Encounters Encounter Location Date Provider Diagnosis Shan Hsu MD [address] [place], [place] [id number] 02/26/2024 Shan Hsu Prediabetes R73.03 and Coronary artery disease of [place] artery of [place] heart with stable angina pectoris I25.118 Assessments Encounter Date Diagnosis (ICD Code) Assessment Notes Treatment Notes Treatment Clinical Notes Section Notes 02/26/2024 Prediabetes (ICD-10 - R73.03) labs reviewed, stable no need for medication at this time 02/26/2024 Coronary artery disease of [place] artery of [place] heart with stable angina pectoris (ICD-10 - I25.118) doing well.will continue current regiment, needs stress test.MESSAGE LEFT WITH DR DEL REAL IN REGARDS TO STRESS TEST , WE NEED TO KNOW IF HE WANTS US TO [place] [facility] [place] Of Treatment Treatment Notes Assessment Notes Prediabetes labs reviewed, stabl e no need for medication at this time Coronary artery disease of [place] artery of [place] heart with stable angina pectoris doing well.will continue current regiment, needs stress test.MESSAGE LEFT WITH DR DEL REAL IN REGARDS TO STRESS TEST , WE NEED TO KNOW IF HE WANTS US TO SEND THE [place] [facility] [place] Next Appt Details Follow Up: 6 Months, Reason: complete Provider Name:Shan Dhaliwal ier, 08/18/2025 03:30:00 PM, [address], [address], [place], [place], [id number], Progress Notes * Kevin DEL REAL MDOB: (64 yo M)Acc No.[id number]:02/26/2024 Progress Notes Patient: Chela ahujaKevin Provider: Dejuan Hsu MD :1960 A ge:64 Y S ex:Male Date:02/26/2024 Address:[address] [place] [address], [id number] Subjective: * Chief Complaints: * 6 MO F/Kerry Covid symptoms * HPI: S ymptom(s): patient is a 64 yo male here for6 month follow up visit. * ROS: G eneral/Constitutional: Denies C hills. D enies F atigue. D enies F ever. D enies H eadache. E NT: Patient denies d ecreased sense of smell , any loss of taste , sore throat. D enies S ore throat. R espiratory: Denies C ough. D enies S hortness of breath at rest. D enies S hortness of breath with exertion. C ardiovascular: Denies C hest pain at rest. D enies C hest pain with exertion. D enies D izziness. G astrointestinal: Denies D iarrhea. D enies N ausea. M usculoskeletal: Patient denies m uscle aches. P eripheral Vascular: Patient denies r ed and blue toes. * Medical History: * Surgical History: * Hospitalization/Major Diagno stic Procedure: * Medications: T akingPriLOSEC OTC 20 MG Tablet Delayed Release 1 tablet 30 minutes before morning meal Orally Once a dayAspir-Low 81 MG Tablet Delayed Release 1 tablet Orally Once a dayTylenol 8 Hour 650 MG Tablet Extended Release 2 tablets as needed Orally every 8 hrsVitamin D (Cholecalciferol) 25 MCG (1000 UT) Capsule 1 capsule Orally Once a dayMetoprolol Succinate ER 50 MG Tablet Extended Release 24 Hour 1 tablet Orally Once a dayAtorvastatin Calcium 80 MG Tablet TAKE 1 TABLET BY MOUTH EVERY DAY Sertraline HCl 100 MG Tablet TAKE 1 TABLET BY MOUTH EVERY DAY Taking PriLOSEC OTC 20 MG Tablet Delayed Release 1 tablet 30 minutes before morning meal Orally Once a dayTaking Aspir-Low 81 MG Tablet Delayed Release 1 tablet Orally Once a dayTaking Tylenol 8 Hour 650 MG Tablet Extended Release 2 tablets as needed Orally every 8 hrsTaking Vitamin D (Cholecalciferol) 25 MCG (1000 UT) Capsule 1 capsule Orally Once a dayTaking Metoprolol Succinate ER 50 MG Tablet Extended Release 24 Hour 1 tablet Orally Once a dayTaking Atorvastatin Calcium 80 MG Tablet TAKE 1 TABLET BY MOUTH EVERY DAY Taking Sertraline HCl 100 MG Tablet TAKE 1 TABLET BY MOUTH EVERY DAY Not-Taking/PRNLisinopril 5 MG Tablet TAKE 1 TABLET BY MOUTH EVERY DAY PriLOSEC 20 MG Capsule Delayed Release 1 capsule Orally Once a dayMedication List reviewed and reconciled with the patientNot-Taking/PRN Lisinopril 5 MG Tablet TAKE 1 TABLET BY MOUTH EVERY DAY Not-Taking/PRN PriLOSEC 20 MG Capsule Delayed Release 1 capsule Orally Once a dayMedication List reviewed and reconciled with the patient * Allergies: N .K.D.A.yes[Allergies Verified] Objective: * Vitals: H t: 70, Wt:193, BMI:27.69, BP:110/64 weight is up 8 pounds since 11-04-23. * P ast Orders: L ab:Liver Panel (Order Date - 02/21/2024) (Collection Date - 02/21/2024) Value Reference Range Bilirubin Total 0.6 0.0-1.0 - mg/dL Bilirubin Direct 0.2 0.0-0.5 - mg/dL Aspartate Amino Transferase 22 5-37 - U/L Alanine Aminotransferase 25 0-40 - U/L Total Protein 7.4 6.5-8.0 - g/dL Albumin Level 4.5 3.5-5.0 - g/dL Alkaline Phosphatase 72 39-117 - U/L L ab:Glucose Fasting (Order Date - 02/21/2024) (Collection Date - 02/21/2024) Value Reference Range Glucose Fasting 108 H 60-99 - mg/dL L ab:Lipid Panel (Order Date - 02/21/2024) (Collection Date - 02/21/2024) Value Reference Range Triglycerides 65 <150 - mg/dL Cholesterol 100 <200 - mg/dL LDL Cholesterol Calculated 48 <100 - mg/dL HDL Cholesterol 39 L >40 - mg/dL L ab:Hemoglobin A1c (Order Date - 02/21/2024) (Collection Date - 02/21/2024) Value Reference Range Hemoglobin A1c % 5.5 <6.0 - % Estimated Average Glucose 111 - mg/dL * Examination: G eneral Examination: GENERAL APPEARANCE: alert, well hydrated, in no distress male. HEAD: normocephalic. SKIN: good turgor. HEART: no murmurs, rubs, gallops regular rate and rhythm.? LUNGS: no wheezes, rales, rhonchi good air movement clear to auscultation bilaterally. Assessment: * Assessment: 1. P rediabetes - R73.03 (Primary) 2 . C oronary artery disease of [place] artery of [place] heart with stable angina pectoris - I25.118 Plan: * Treatment: 2. C oronary artery disease of [place] artery of [place] heart with stable angina pectoris Notes: doing well.will continue current regiment, needs stress test.MESSAGE LEFT WITH DR DEL REAL IN REGARDS TO STRESS TEST , WE NEED TO KNOW IF HE WANTS US TO S[place] THE [place] [facility] [place] * Procedure Codes: * Follow Up: 6 Months (Reason: complete) * * Sign off status: Completed Addendum: * true * Provider: Dejuan Hsu MD Date: 0 02/26/2024 Generated for Anamaria garcia/Shila/Garretitting on: 1 10/18/2024 08:50 AM EST History and Physical Notes * HPI (History of Present Illness) Category Sub-Category Detail Notes Category Not es Symptom(s) patient is a 64 yo male here for6 month follow up visit. Examination Category Sub-Category Detail Notes Category Not es General Examination GENERAL APPEARANCE: alert, w ell hydrated, in no distress male HEAD: normocephalic HEART: no murmurs, rubs, ga llops regular rate and rhythm LUNGS: no wheezes, rales, r [place] good air movement clear to auscultation bilaterally SKIN: good turgor
--- OUTSIDE RECORDS SUMMARY | 2024-04-19 05:03 | XMS_ITS ---
Author Organization Shan Hsu MD Address [address] [place] [phone] Care Team Providers Care Information Security Systems Instructor Name Role Phone Shan Hsu Primary Care Provider [phone] REASON FOR VISIT REFILL ATORVASTATIN Medications Medication SIG (Take, Route, Frequency, Duration) Notes Start Date End Date Status Atorvastatin Calcium 80 MG TAKE 1 TABLET BY MOUTH EVERY DAY Orally Once a day for 90 days Active Encounters Encounter Location Date Provider Diagnosis Shan Hsu MD [address] [facility] [address] [place] [phone] 04/19/2024 Shan Hsu Plan Of Treatment Medication Medication Name Sig Start Date Stop Date Notes Atorvastatin Calcium 80 MG TAKE 1 TABLET BY MOUTH EVERY DAY Orally Once a day for 90 days Next Appt Details Provider Name:Shan Dhaliwal ier, 08/18/2025 03:30:00 PM, [address], Suite [facility], [place], [place], [phone], Progress Notes * Kevin DEL REAL MDOB: (64 yo M)Acc No.[id number]:04/19/2024 Patient: Chela Kevin ahuja :1960 A ge:64 Y S ex:Male Address:[address], [place] [address] * Refills Refill Atorvastatin Calcium Tablet, 80 MG, Orally, 90 Tablet, TAKE 1 TABLET BY MOUTH EVERY DAY, Once a day, 90 days, Refills=4 * true * Date: Generated for Anamaria garcia/Shila/Audi on: 10/18/2024 08:50 AM EST
--- OUTSIDE RECORDS SUMMARY | 2024-08-06 04:15 | XMS_ITS ---
Author Organization Shan Hsu MD Address [address] [place], [place] [phone] Care Team Providers Care Golf Sales Manager Name Role Phone Shan Hsu Primary Care Provider Results Component Value Reference Range Notes Complete Blood Count Auto Di ff Reviewed date:08/12/2024 09:50:10 AM Interpretation: Performing Lab:[facility], [address] [place] [phone] Notes/Report: White Blood Count 7.1 4.8-10.8 X10*3/uL Red Blood Count 4.40 4.60-5.80 X10*6/uL Hemoglobin 14.2 14.0-18.0 g/dl Hematocrit 39.8 42.0-52.0 % Mean Corpuscular Volume 90.5 80.0-98.0 fL Mean Corpuscular Hemoglobin 32.3 27.0-33.0 pg Mean Corpuscular HGB Conc 35.7 31.0-36.0 g/dl Red Cell Distribution Width 12.0 11.0-16.0 % Platelet Count 189 160-400 X10*3/uL Mean Platelet Volume 9.9 9.4-12.4 fL Neutrophils Percent Auto 61.7 45-73 % Imm Gran Pct Auto 0.3 0.0-0.4 % Lymphocytes Percent Auto 25.7 20-40 % Monocytes Percent Auto 10.9 2-11 % Eosinophils Percent Auto 0.7 0-4 % Basophils Percent Auto 0.7 0-2 % NRBC Pct Auto 0.0 0.0-0.2 /100WBC Neutrophils Absolute Auto 4.4 2.0-8.3 x10*3/u L Imm Gran Abs Auto 0.02 0.00-0.03 X10*3/uL Lymphocytes Absolute Auto 1.8 1.2-4.9 X10*3/u L Monocytes Absolute Auto 0.8 0.1-1.2 X10*3/uL Eosinophils Absolute Auto 0.1 0.0-0.4 X10*3/u L Basophils Absolute Auto 0.1 0.0-0.2 X10*3/uL NRBC Abs Auto 0.000 0.0-0.012 X10*3/uL Comprehensive Temple. Panel Fa st Reviewed date:08/12/2024 11:46:16 AM Interpretation: Performing Lab:[facility], [address] [place] [phone] Notes/Report: Sodium 137 135-145 mmol/L Potassium 4.1 3.3-5.1 mmol/L Chloride 102 96-108 mmol/L Carbon Dioxide 28 22-29 mmol/L Anion Gap 11 12-20 Blood Urea Nitrogen 18 9-16 mg/dL Creatinine 1.16 0.5-1.4 mg/dL Estimated Glomerular Filt Rate > 60 NOTE: For -Niue[place] individuals, multiply the result by 1.210. Chronic Kidney Disease: Estimated GFR < 60 mL/min/1.73m2 Severe Kidney Disease: Estimated GFR < 15 mL/min/1.73m2 Glucose Fasting 116 60-99 mg/dL A fasting glucose from 100-125 mg/dl is considered impaired (pre-diabetes). Calcium 10.3 8.4-10.2 mg/dL Bilirubin Total 0.6 0.0-1.0 mg/dL Aspartate Amino Transferase 34 5-37 U/L Alanine Aminotransferase 28 0-40 U/L Total Protein 7.1 6.5-8.0 g/dL Albumin Level 4.5 3.5-5.0 g/dL Alkaline Phosphatase 67 39-117 U/L Lipid Panel Reviewed date:08/12/2024 11:45:40 AM Interpretation: Performing Lab:[facility], [address] [place] [phone] Notes/Report: Triglycerides 44 <150 mg/dL Desirable Triglyceride: less than 150 mg/dL Borderline High Triglyceride 150-199 mg/dL High Triglyceride: 200-499 mg/dL Very High Triglyceride: greater than or equal to 5OO mg/dL Cholesterol 85 <200 mg/dL Desirable Cholesterol: less than 200 mg/dL Borderline High Cholesterol: 200-239 mg/dL High Cholesterol: greater than 239 mg/dL LDL Cholesterol Calculated 40 <100 mg/dL Desirable LDL: less than 100 mg/dL Near Optimal/Above Optimal LDL: 110-129 mg/dL Borderline High LDL: 130-159 mg/dL High LDL: 160-189 mg/dL Very High LDL: greater than or equal to 190 mg/dL HDL Cholesterol 37 >40 mg/dL Desirable HDL: greater than 40 mg/dL Note: This HDL assay may give artificially low results in patients with liver disease. PSA,Total (Free>4and<10) Reviewed date:08/12/2024 11:45:31 AM Interpretation: Performing Lab:[facility], [address] [place] [phone] Notes/Report: PSA,Total (Free>4and<10) 1.01 0.00-4.00 ng/mL A Free PSA was not performed: The percentage of Free PSA can be used to enhance the differentiation of prostate cancer from benign prostatic disease in subjects whose PSA levels are between 4.0 and 10.0 ng/mL. For subjects whose PSA levels are below 4.0 or above 10.0 ng/mL, the risk of prostate cancer is determined on the basis of the PSA alone. Therefore the % Free PSA is recommended only for those subjects whose PSA levels are between 4.0 and 10.0 ng/mL. PSA methodology: Lo Alinity i Chemiluminescent Microparticle Immunoassay (CMIA) Vitamin D 25-OH Total Reviewed date:08/12/2024 11:46:26 AM Interpretation: Performing Lab:[facility], [address] [place] [phone] Notes/Report: Vitamin D 25-OH Total 41.8 >30 ng/mL Health Based Reference Values* < 20 ng/mL Deficient 20-30 ng/mL Insufficient > 30 ng/mL Sufficient *Riaz RAMSEY. N Engl J Med. 2007;357:266-280 Care must be taken in interpreting Vitamin D results from different laboratories and methodologies. Published data demonstrated that results from patients undergoing hemodialysis may show a negative bias when tested with various automated 25-OH vitamin D assays when compared to LC-MS/MS. When testing samples from patients whose predominant form of Vitamin D is Vitamin D2, such as patients receiving Vitamin D2 supplementation, results that are subtherapeutic should be confirmed with another method such as LC-MS/MS. UA ClnCatch+Micro w/rflx Cul t Reviewed date:08/12/2024 12:29:55 PM Interpretation: Performing Lab:[facility], [address] [place] [phone] Notes/Report: Urine, Clean Catch Color Urine Yellow Appearance Urine Clear PH 7.5 5.0-9.0 Glucose Urine UA Negative Negative mg/dL Urine Blood Negative Negative Specific [place] - Urine 1.015 1.005-1.025 Urine Protein Negative Neg-Trace mg/dL Urine Ketones Negative Negative mg/dL Nitrite Urine Negative Negative Leukocyte Esterase Urine Negative Negative RBC Urine 0-2 0-2 /HPF WBC Urine 0-5 0-5 /HPF Squamous Epithelial Cell Urine 0-2 0-2 /HPF Bacteria Urine None Seen None Seen Hyaline Casts Urine 0-2 0-2 /LPF REASON FOR VISIT FASTING LABS Encounters Encounter Location Date Provider Diagnosis Shan Hsu MD [address] [place] [address] [place] [phone] 08/06/2024 Shan Hsu Prediabetes R73.03 ; Elevated BUN R79.9 ; Essential hypertension I10 and Vitamin D deficiency E55.9 Assessments Encounter Date Diagnosis (ICD Code) Assessment Notes Treatment Notes Treatment Clinical Notes Section Notes 08/06/2024 Prediabetes (ICD-10 - R73.03) 08/06/2024 Elevated BUN (ICD-10 - R79.9) 08/06/2024 Essential hypertension (ICD-10 - I10) 08/06/2024 Vitamin D deficiency (ICD-10 - E55.9) Plan Of Treatment Next Appt Details Provider Name:Shan san, 08/18/2025 03:30:00 PM, [address] [place] [address], [address], [place], [place], [phone], Progress Notes * Kevin DEL REAL MDOB: 9 (65 yo M)Acc No.[id number]:08/06/2024 Progress Note Patient: Kevin LUCERO Provider: Dejuan Hsu MD :1960 A ge:64 Y S ex:Male Date:08/06/2024 Address:[address] [place] [address] [place] [id number] Subjective: * Chief Complaints: * 1 . FASTING LABS. * Medical History: Objective: * Vitals: Assessment: * Assessment: 1. P rediabetes - R73.03 2 . E levated BUN - R79.9 3 . E ssential hypertension - I10 4 . V itamin D deficiency - E55.9 Plan: * Treatment: 2. E levated BUN L AB: Complete Blood Count Auto Diff (Collection Date & Time - 08/12/2024 09:02 AM) L AB: Comprehensive Temple. Panel Fast (Collection Date & Time - 08/12/2024 09:02 AM) L AB: Lipid Panel (Collection Date & Time - 08/12/2024 09:02 AM) L AB: PSA,Total (Free>4and<10) (Collection Date & Time - 08/12/2024 09:02 AM) L AB: Vitamin D 25-OH Total (Collection Date & Time - 08/12/2024 09:02 AM) L AB: UA ClnCatch+Micro w/rflx Cult (Collection Date & Time - 08/12/2024 09:00 AM) 3. E ssential hypertension L AB: Complete Blood Count Auto Diff (Collection Date & Time - 08/12/2024 09:02 AM) L AB: Comprehensive Temple. Panel Fast (Collection Date & Time - 08/12/2024 09:02 AM) L AB: Lipid Panel (Collection Date & Time - 08/12/2024 09:02 AM) L AB: PSA,Total (Free>4and<10) (Collection Date & Time - 08/12/2024 09:02 AM) L AB: Vitamin D 25-OH Total (Collection Date & Time - 08/12/2024 09:02 AM) L AB: UA ClnCatch+Micro w/rflx Cult (Collection Date & Time - 08/12/2024 09:00 AM) 4. V itamin D deficiency L AB: Complete Blood Count Auto Diff (Collection Date & Time - 08/12/2024 09:02 AM) L AB: Comprehensive Temple. Panel Fast (Collection Date & Time - 08/12/2024 09:02 AM) L AB: Lipid Panel (Collection Date & Time - 08/12/2024 09:02 AM) L AB: PSA,Total (Free>4and<10) (Collection Date & Time - 08/12/2024 09:02 AM) L AB: Vitamin D 25-OH Total (Collection Date & Time - 08/12/2024 09:02 AM) L AB: UA ClnCatch+Micro w/rflx Cult (Collection Date & Time - 08/12/2024 09:00 AM) * * The named appointment provid er may or may not be the originator of this progress note, and it is not deemed complete until electronically signed by the appointment provider. Sign off status: Pending * Provider: Dejuan Hsu MD Date: 1 Generated for Anamaria garcia/Shila/Garretitting on: 10/18/2024 08:49 AM EST
--- OUTSIDE RECORDS SUMMARY | 2024-08-12 10:30 | XMS_ITS ---
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 Name Role Phone Shan Hsu Primary Care Provider [phone] Allergies No Known Allergies REASON FOR VISIT Overdue for Colorectal Cancer Screening, Annual Medications Medication SIG (Take, Route, Frequency, Duration) Notes Start Date End Date Status Lisinopril 5 MG TAKE 1 TABLET BY DONTA TH EVERY DAY for 30 Not-Taking PriLOSEC 20 MG 1 capsule Orally Onc e a day Not-Taking Metoprolol Succinate ER 50 MG 1 tablet Orally Once a day Active Atorvastatin Calcium 80 MG TAKE 1 TABLET BY MOUTH EVERY DAY Orally Once a day for 90 days Active Sertraline HCl 100 MG TAKE 1 TABLET BY M OUTH EVERY DAY for 90 Active Vitamin D (Cholecalciferol) 25 MCG (1000 UT) 1 capsule Orally Once a day Active PriLOSEC OTC 20 MG 1 tablet 30 minutes before morning meal Orally Once a day for 30 day(s) Active Aspir-Low 81 MG 1 tablet Orally Once a day for 30 day(s) Active Tylenol 8 Hour 650 MG 2 tablets as neede d Orally every 8 hrs Active Social History Tobacco Use: Social History Observation Description Date Details (start date - stop date) Never Smoker NA - NA Tobacco Use/Smoking Question Answer Notes Patient is a nonsmoker Additional Findings: Tobacco Non-User Cu rrent non-smoker, currently using no form of tobacco Alcohol Screen Question Answer Notes Did you have a drink containing alcohol in the p ast year? 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 RECEIVED 08/12/2024 Annual physical exam (ICD-10 - Z00.00) labs reviewed and discussed with patient 08/12/2024 Prediabetes (ICD-10 - R73.03) stable, no need for medication at this time 08/12/2024 Essential hypertension (ICD-10 - I10) stable, at goal, will contiue current regiment 08/12/2024 Vitamin D deficiency (ICD-10 - E55.9) stable, will contiue current regiment 08/12/2024 Depression screening (ICD-10 - Z13.31) negative screen Plan Of Treatment Treatment Notes Assessment Notes Coronary artery disease of n ative artery of seminole heart with stable angina pectoris need stress test from dr hooks/ RESULTS OF STRESS TEST DONE AT [facility] RECEIVED Annual physical exam labs reviewed and d iscussed with patient Prediabetes stable, no need for medication at this time Essential hypertension stable, at goal, will contiue current regiment Vitamin D deficiency stable, will contiu e current regiment Depression screening negative screen Next Appt Details Follow Up: 6 Months, Reason: Provider Name:Shan Dhaliwal ier, 08/18/2025 03:30:00 PM, [address], [address], [place], [place], [phone], Progress Notes * Kevin DEL REAL MDOB: (64 yo M)Acc No.[id number]:08/12/2024 Progress Notes Patient: Kevin Cintron Provider: Dejuan Hsu MD :1960 A ge:64 Y S ex:Male Date:08/12/2024 Address:[address] [place] [address], [id number] Subjective: * Chief Complaints: * O verdue for Colorectal Cancer ScreeningAnnual * HPI: D epression Screening: PHQ-9 L ittle interest or pleasure in doing things N ot at all, F eeling down, depressed, or hopeless N ot at all, T rouble falling or staying asleep, or sleeping too much N ot at all, F eeling tired or having little energy N ot at all, P oor appetite or overeating N ot at all, F eeling bad about yourself or that you are a failure, or have let yourself or your family down N ot at all, T rouble concentrating on things, such as reading the newspaper or watching television N ot at all, M oving or speaking so slowly that other people could have noticed; or the opposite, being so fidgety or restless that you have been moving around a lot more than usual N ot at all, T houghts that you would be better off or of hurting yourself in some way N ot at all, T otal Score 0 . I nterpretation and Intervention D epression Screening Findings N egative, F ollow-Up for Depression : review of PHQ-9 found negative result, no follow-up needed. C ommunication Needs: Communication Needs D oes the patient have a hearing impairment N o, D oes the patient have a vision impairment? Y es, I f yes, what is the vision impairment? G lasses, D oes the patient have a cognition impairment? N o. F all Risk: History H ave you had any falls with injury in the past year? N o, H ave you had two or more falls in the past year? N o. S ALBERT Questions: SDOH Questions I n the past year have you been worried about losing housing? N o, I n the past year have you or any family members you live with been unable to get any of the following when it was really needed? Check all that apply: F ood. S ymptom(s): patient is a 64 yo male here for annual visit with review of recent labs and follow up of chronic issues, had stress test and was good had nuclear and was normal. * ROS: G eneral/Constitutional: Patient denies f atigue , headache. C hange in appetite?denies. C hills d enies. F ever d enies. O phthalmologic: Blurred vision d enies. D ischarge d enies. P ain d enies. E NT: Patient denies d ecreased sense of smell , any loss of taste , sore throat. D ecreased hearing d enies. S ore throat d enies. S wollen glands d enies. E ndocrine: Cold intolerance d enies. E xcessive thirst d enies. H eat intolerance d enies. W eight loss d enies. R espiratory: Cough d enies. S hortness of breath at rest d enies. S hortness of breath with exertion d enies. W heezing d enies. C ardiovascular: Chest pain at rest d enies. C hest pain with exertion?denies. I rregular heartbeat d enies. S hortness of breath d enies. ? G astrointestinal: Abdominal pain d enies. C hange in bowel habits d enies. D iarrhea d enies. N ausea d enies. R ectal bleeding d enies. V omiting d enies . G enitourinary: Blood in urine d enies. D ifficulty urinating d enies. F requent urination d enies. M usculoskeletal: Patient denies m uscle aches. P ainful joints d enies. W eakness d enies. P eripheral Vascular: Patient denies r ed and blue toes. S kin: Dry skin d enies. I tching d enies. D enies?Mole(s), changes in moles, new moles or any lesions of concern. D enies P hotosensitivity. R talia d enies. N eurologic: Dizziness d enies. F ainting d enies. H eadache?denies. * Medical History: * Surgical History: * Hospitalization/Major Diagno stic Procedure: * Family History: F ather: 95 yrs, diagnosed with Diabetes. M other: 90 yrs. 1 brother(s) , 1 sister(s) . 3 son(s) . . Father Covid Mother healthy no substance abuse in the family mother depression and Bipolar, No pertinent family medical history, Denies mental health/substance abuse family history, Denies mental health/substance abuse family history. * Social History: T obacco Use: T obacco Use/Smoking P atient is a n onsmoker, A dditional Findings: Tobacco Non-User C urrent non-smoker, currently using no form of tobacco. D rugs/Alcohol: A lcohol Screen D id you have a drink containing alcohol in the past year? N o, P oints 0 , I nterpretation N egative. M iscellaneous: C affeine: 3-4 cups per day. Children: yes. Community involvements: yes. Exercise: yes, walks 5 times a week2 -3 miles. Home smoke detector use: yes. Housing: owning. Living with: spouse. Marital status: . Occupation: weeks/months/years, works full-time. Pets: none, 1 dog. no Travel outside of the [place]. * Medications: T akingPriLOSEC OTC 20 MG [...] BY MOUTH EVERY DAY Orally Once a daySertraline HCl 100 MG Tablet TAKE 1 TABLET [...] BY MOUTH EVERY DAY Orally Once a dayTaking Sertraline HCl 100 MG Tablet TAKE 1 [...] Verified] Objective: * Vitals: H t: 70, Wt:184, BMI:26.40, BP:128/66 weight is down 9 pounds since 02-26-24. * P ast Orders: L ab:Lipid Panel (Order Date - 08/06/2024) (Collection Date - 08/12/2024) Value Reference Range Triglycerides 44 <150 - mg/dL Cholesterol 85 <200 - mg/dL LDL Cholesterol Calculated 40 <100 - mg/dL HDL Cholesterol 37 L >40 - mg/dL L ab:PSA,Total (Free>4and<10) (Order Date 08/06/2024) (Collection Date - 08/12/2024) Value Reference Range PSA,Total (Free>4and<10) 1.01 0.00-4.00 - ng/ mL L ab:Vitamin D 25-OH Total (Order Date - 08/06/2024) (Collection Date - 08/12/2024) Value Reference Range Vitamin D 25-OH Total 41.8 >30 - ng/mL L ab:UA ClnCatch+Micro w/rflx Cult (Order Date - 08/06/2024) (Collection Date - 08/12/2024) Value Reference Range Color Urine Yellow - Appearance Urine Clear - PH 7.5 5.0-9.0 - Glucose Urine UA Negative Negative - mg/dL Urine Blood Negative Negative - Specific [place] - Urine 1.015 1.005-1.025 - Urine Protein Negative Neg-Trace - mg/dL Urine Ketones Negative Negative - mg/dL Nitrite Urine Negative Negative - Leukocyte Esterase Urine Negative Negative - RBC Urine 0-2 0-2 - /HPF WBC Urine 0-5 0-5 - /HPF Squamous Epithelial Cell Urine 0-2 0-2 - /HP F Bacteria Urine None Seen None Seen - Hyaline Casts Urine 0-2 0-2 - /LPF L ab:Complete Blood Count Auto Diff (Order Date - 08/06/2024) (Collection Date - 08/12/2024) Value Reference Range White Blood Count 7.1 4.8-10.8 - X10*3/uL Red Blood Count 4.40 L 4.60-5.80 - X10*6/uL Hemoglobin 14.2 14.0-18.0 - g/dl Hematocrit 39.8 L 42.0-52.0 - % Mean Corpuscular Volume 90.5 80.0-98.0 - fL Mean Corpuscular Hemoglobin 32.3 27.0-33.0 - pg Mean Corpuscular HGB Conc 35.7 31.0-36.0 - g/ dl Red Cell Distribution Width 12.0 11.0-16.0 - % Platelet Count 189 160-400 - X10*3/uL Mean Platelet Volume 9.9 9.4-12.4 - fL Neutrophils Percent Auto 61.7 45-73 - % Imm Gran Pct Auto 0.3 0.0-0.4 - % Lymphocytes Percent Auto 25.7 20-40 - % Monocytes Percent Auto 10.9 2-11 - % Eosinophils Percent Auto 0.7 0-4 - % Basophils Percent Auto 0.7 0-2 - % NRBC Pct Auto 0.0 0.0-0.2 - /100WBC Neutrophils Absolute Auto 4.4 2.0-8.3 - x10* 3/uL Imm Gran Abs Auto 0.02 0.00-0.03 - X10*3/uL Lymphocytes Absolute Auto 1.8 1.2-4.9 - X10* 3/uL Monocytes Absolute Auto 0.8 0.1-1.2 - X10*3/ uL Eosinophils Absolute Auto 0.1 0.0-0.4 - X10* 3/uL Basophils Absolute Auto 0.1 0.0-0.2 - X10*3/ uL NRBC Abs Auto 0.000 0.0-0.012 - X10*3/uL L ab:Comprehensive [place]. Panel Fast (Order Date - 08/06/2024) (Collection Date - 08/12/2024) Value Reference Range Sodium 137 135-145 - mmol/L Bilirubin Total 0.6 0.0-1.0 - mg/dL Aspartate Amino Transferase 34 5-37 - U/L Alanine Aminotransferase 28 0-40 - U/L Total Protein 7.1 6.5-8.0 - g/dL Albumin Level 4.5 3.5-5.0 - g/dL Alkaline Phosphatase 67 39-117 - U/L Potassium 4.1 3.3-5.1 - mmol/L Chloride 102 96-108 - mmol/L Carbon Dioxide 28 22-29 - mmol/L Anion Gap 11 L 12-20 - Blood Urea Nitrogen 18 H 9-16 - mg/dL Creatinine 1.16 0.5-1.4 - mg/dL Estimated Glomerular Filt Rate > 60 - Glucose Fasting 116 H 60-99 - mg/dL Calcium 10.3 H 8.4-10.2 - mg/dL * Examination: G eneral Examination: GENERAL APPEARANCE: w ell developed, well nourished, in no acute distress. HEAD: n ormocephalic, atraumatic. EYES: p upils equal, round, reactive to light and accommodation, sclera non-icteric. EARS: n ormal. ORAL CAVITY: m ucosa moist. THROAT: c lear. NECK/THYROID: n bonilla supple, full range of motion, no cervical lymphadenopathy, no bruits. SKIN: w arm and dry, no suspicious lesions. HEART: r egular rate and rhythm, S1, S2 normal, no murmurs.? LUNGS: c lear to auscultation bilaterally. ABDOMEN: s oft, nontender, nondistended, bowel sounds present, normal, no organomegaly , no masses palpable. RECTAL EXAM: d eclined. MALE GENITOURINARY: n ot examined. EXTREMITIES: n o clubbing, cyanosis, or edema. NEUROLOGIC: n onfocal, motor strength normal upper and lower extremities, sensory exam intact. Assessment: * Assessment: 1. A nnual physical exam - Z00.00 (Primary) 2 . C oronary artery disease of seminole artery of seminole heart with stable angina pectoris - I25.118 3 . P rediabetes - R73.03 4 .?Essential hypertension - I10 5 . V itamin D deficiency - E55.9 6 . D epression screening - Z13.31 Plan: * Treatment: 2. C oronary artery disease of seminole artery of seminole heart with stable angina pectoris Notes: need stress test from dr hooks/ RESULTS OF STRESS TEST DONE AT [facility] RECEIVED 3. P rediabetes Notes: stable, no need for medication at this time 4. E ssential hypertension Notes: stable, at goal, will contiue current regiment 5. V itamin D deficiency Notes: stable, will contiue current regiment 6. D epression screening Notes: negative screen * Procedure Codes: * Preventive Medicine: Counseling: C are goal follow-up plan: Rosa mendes for abnormal BMI provided?Yes, Silvano alanis Normal BMI Follow-up Dejuan kirk encouragement to exercise. * Follow Up: 6 Months * * Sign off status: Completed true * Provider: Dejuan Hsu MD Date: Generated for Anamaria garcia/Shila/Garretitting on: 10/18/2024 08:50 AM EST History and Physical Notes * HPI (History of Present Illness) Category Sub-Category Detail Notes Category Not es Symptom(s) patient is a 64 yo male here for annual visit with review of recent labs and follow up of chronic issues, had stress test and was good had nuclear and was normal Depression Screening PHQ-9 Little inte rest or pleasure in doing things: Not at all Feeling down, depressed, or hopeless: No t at all Trouble falling or staying asleep, or sl eeping too much: Not at all Feeling tired or having little energy: N ot at all Poor appetite or overeating: Not at all Feeling bad about yourself o r that you are a failure, or have let yourself or your family down: Not at all Trouble concentrating on thi ngs, such as reading the newspaper or watching television: Not at all Moving or speaking so slowly that other people could have noticed; or the opposite, being so fidgety or restless that you have been moving around a lot more than usual: Not at all Thoughts that you would be b woodrow off or of hurting yourself in some way: Not at all Total Score: 0 Interpretation and Intervention Depression Kira tomas Findings: Negative Follow-Up for Depression: : review of PH Q-9 found negative result, no follow-up needed SDOH Questions SDOH Questions In the past year have you been worried about losing housing?: No In the past year have you or any family members you live with been unable to get any of the following when it was really needed? Check all that apply:: Food Fall Risk History Have you had any falls with injury i n the past year?: No Have you had two or more falls in the st year?: No Communication Needs Communication Needs Does the patient have a hearing impairment: No Does the patient have a vision impairmen t?: Yes If yes, what is the vision impairment?: Glasses Does the patient have a cognition impair ment?: No Examination Category Sub-Category Detail Notes Category Not es General Examination GENERAL APPEARANCE: well dev eloped, well nourished, in no acute distress HEAD: normocephalic, atrau matic EYES: pupils equal, round, reactive to light and accommodation, sclera non-icteric EARS: normal THROAT: clear NECK/THYROID: neck supple, full ra nge of motion, no cervical lymphadenopathy, no bruits HEART: regular rate and rhy thm, S1, S2 normal, no murmurs LUNGS: clear to auscultatio n bilaterally ABDOMEN: soft, nontender, non distended, bowel sounds present, normal, no organomegaly , no masses palpable NEUROLOGIC: nonfocal, motor stre ngth normal upper and lower extremities, sensory exam intact SKIN: warm and dry, no barb picious lesions EXTREMITIES: no clubbing, cyanosi s, or edema MALE GENITOURINARY: not examined RECTAL EXAM: declined ORAL CAVITY: mucosa moist
--- OUTSIDE RECORDS SUMMARY | 2025-02-07 03:15 | XMS_ITS ---
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 Name Role Phone Shan Hsu Primary Care Provider [phone] REASON FOR VISIT fasting lipids Encounters Encounter Location Date Provider Diagnosis Shan Hsu MD [address] [place] [phone] 02/07/2025 Shan Hsu Prediabetes R73.03 and Coronary artery disease of [place] artery of [place] heart with stable angina pectoris I25.118 Assessments Encounter Date Diagnosis (ICD Code) Assessment Notes Treatment Notes Treatment Clinical Notes Section Notes 02/07/2025 Prediabetes (ICD-10 - R73.03) 02/07/2025 Coronary artery disease of [place] artery of [place] heart with stable angina pectoris (ICD-10 - I25.118) Plan Of Treatment Pending Test Test Name Order Date Liver Panel 02/07/2025 Glucose Fasting 02/07/2025 Lipid Panel with Reflex 02/07/2025 Hemoglobin A1c 02/07/2025 Next Appt Details Provider Name:Shan Dhaliwal ier, 08/18/2025 03:30:00 PM, [address], [address], [place], [place], [phone], Progress Notes * Kevin DEL REAL MDOB: 9 (65 yo M)Acc No.[id number]:02/07/2025 Progress Note Patient: Kevin LUCERO Provider: Dejuan Hsu MD :1960 A ge:64 Y S ex:Male Date:02/07/2025 Address:[address] [place] [address], [id number] Subjective: * Chief Complaints: * 1 . Fasting lipids. * Medical History: Objective: * Vitals: Assessment: * Assessment: 1. P rediabetes - R73.03 (Primary) 2 . C oronary artery disease of [place] artery of [place] heart with stable angina pectoris - I25.118 Plan: * Treatment: 2. C oronary artery disease of [place] artery of [place] heart with stable angina pectoris L AB: Liver Panel L AB: Glucose Fasting L AB: Lipid Panel with Reflex L AB: Hemoglobin A1c * * The named appointment provid er may or may not be the originator of this progress note, and it is not deemed complete until electronically signed by the appointment provider. Sign off status: Pending * Provider: Dejuan Hsu MD Date: 0 02/07/2025 Generated for Anamaria garcia/Shila/Garretitting on: 1 10/18/2024 08:49 AM EST
--- OUTSIDE RECORDS SUMMARY | 2025-02-18 10:30 | XMS_ITS ---
Author Organization Shan Hsu MD Address [address] [place], [place] [id number] Care Team Providers Care Test Engineering Manager Name Role Phone Shan Hsu Primary Care Provider [phone] Allergies No Known Allergies REASON FOR VISIT 6 MO F/U, Patient would like Nitro script Medications Medication SIG (Take, Route, Frequency, Duration) Notes Start Date End Date Status Lisinopril 5 MG TAKE 1 TABLET BY DONTA TH EVERY DAY for 30 Not-Taking Atorvastatin Calcium 80 MG TAKE 1 TABLET BY MOUTH EVERY DAY Orally Once a day for 90 days Active Sertraline HCl 100 MG TAKE 1 TABLET BY M OUTH EVERY DAY for 90 Active PriLOSEC 20 MG 1 capsule Orally Onc e a day Not-Taking Nitroglycerin 0.4 MG 1 tablet under the tongue and allow to dissolve as needed. Take every 5 minutes up to 3 times if chest pain persists Sublingual Three times a day for 30 days 02/18/2025 Active PriLOSEC OTC 20 MG 1 tablet 30 minutes before morning meal Orally Once a day for 30 day(s) Active Vitamin D (Cholecalciferol) 25 MCG (1000 UT) 1 capsule Orally Once a day Active Metoprolol Succinate ER 50 MG 1 tablet Orally Once a day Active Aspir-Low 81 MG 1 tablet Orally Once a day for 30 day(s) Active Tylenol 8 Hour 650 MG 2 tablets as neede d Orally every 8 hrs Active Problems Problem Type SNOMED Code ICD Code Onset Dates Problem Status W/U Status Risk Notes Problem Neuropathy ([id number]) Neuropathy (G62.9) Active confirmed Vital Signs Blood pressure systolic 120 mm Hg 02/19/20 25 Blood pressure diastolic 64 mm Hg 025 Height 70 in 02/18/2025 Weight 192 lbs 02/18/2025 BMI 27.55 kg/m2 02/18/2025 weight is up 8 pounds since 08-12-24 Encounters Encounter Location Date Provider Diagnosis Shan Hsu MD [address] [place], [place] [phone] 02/18/2025 Shan Hsu Neuropathy G62.9 ; Coronary artery disease of [place] artery of [place] heart with stable angina pectoris I25.118 and Prediabetes R73.03 Assessments Encounter Date Diagnosis (ICD Code) Assessment Notes Treatment Notes Treatment Clinical Notes Section Notes 02/18/2025 Neuropathy (ICD-10 - G62.9) has some sensation on the bottoms of feet. may be related to the elevated sugars 02/18/2025 Coronary artery disease of [place] artery of [place] heart with stable angina pectoris (ICD-10 - I25.118) stable, will continue current regiment 02/18/2025 Prediabetes (ICD-10 - R73.03) stable, no need for medication at this time Plan Of Treatment Medication Medication Name Sig Start Date Stop Date Notes Nitroglycerin 0.4 MG 1 tablet under the tongue and allow to dissolve as needed. Take every 5 minutes up to 3 times if chest pain persists Sublingual Three times a day for 30 days 02/18/2025 Treatment Notes Assessment Notes Neuropathy has some sensation o n the bottoms of feet. may be related to the elevated sugars Coronary artery disease of n ative artery of [place] heart with stable angina pectoris stable, will continue current regiment Prediabetes stable, no need for medication at this time Next Appt Details Provider Name:Shan Dhaliwal ier, 08/18/2025 03:30:00 PM, [address], [address], [place], [place], [phone], Progress Notes * Kevin DEL REAL MDOB: 9 (65 yo M)Acc No.[id number]:02/18/2025 Progress Notes Patient: Kevin LUCERO Provider: Dejuan Hsu MD :1960 A ge:64 Y S ex:Male Date:02/18/2025 Address:[address] [place] [address], [place], [id number] Subjective: * Chief Complaints: * 6 MO F/UPatient would like Nitro script * HPI: S ymptom(s): patient is a 64 yo male here for 6 month follow up visit. * ROS: G eneral/Constitutional: Denies C hills. D enies F atigue. D enies F ever. D enies H eadache. E NT: Denies S ore throat. R espiratory: Denies C ough. D enies S hortness of breath at rest. D enies S hortness of breath with exertion. C ardiovascular: Denies C hest pain at rest. D enies C hest pain with exertion. D enies D izziness. D enies P alpitations. D enies S hortness of breath. G astrointestinal: Denies D iarrhea. D enies N ausea. * Medical History: * Surgical History: * Hospitalization/Major Diagno stic Procedure: * Medications: T akingPriLOSEC OTC 20 MG Tablet Delayed Release 1 tablet 30 minutes before morning meal Orally Once a day Aspir-Low 81 MG Tablet Delayed Release 1 tablet Orally Once a day Tylenol 8 Hour 650 MG Tablet Extended Release 2 tablets as needed Orally every 8 hrs Vitamin D (Cholecalciferol) 25 MCG (1000 UT) Capsule 1 capsule Orally Once a day Metoprolol Succinate ER 50 MG Tablet Extended Release 24 Hour 1 tablet Orally Once a day Atorvastatin Calcium 80 MG Tablet TAKE 1 TABLET BY MOUTH EVERY DAY Orally Once a day Sertraline HCl 100 MG Tablet TAKE 1 TABLET BY MOUTH EVERY DAY Taking PriLOSEC OTC 20 MG Tablet Delayed Release 1 tablet 30 minutes before morning meal Orally Once a day Taking Aspir-Low 81 MG Tablet Delayed Release 1 tablet Orally Once a day Taking Tylenol 8 Hour 650 MG Tablet Extended Release 2 tablets as needed Orally every 8 hrs Taking Vitamin D (Cholecalciferol) 25 MCG (1000 UT) Capsule 1 capsule Orally Once a day Taking Metoprolol Succinate ER 50 MG Tablet Extended Release 24 Hour 1 tablet Orally Once a day Taking Atorvastatin Calcium 80 MG Tablet TAKE 1 TABLET BY MOUTH EVERY DAY Orally Once a day Taking Sertraline HCl 100 MG Tablet TAKE 1 TABLET BY MOUTH EVERY DAY Not-Taking/PRNLisinopril 5 MG Tablet TAKE 1 TABLET BY MOUTH EVERY DAY PriLOSEC 20 MG Capsule Delayed Release 1 capsule Orally Once a day Medication List reviewed and reconciled with the patientNot-Taking/PRN Lisinopril 5 MG Tablet TAKE 1 TABLET BY MOUTH EVERY DAY Not-Taking/PRN PriLOSEC 20 MG Capsule Delayed Release 1 capsule Orally Once a day Medication List reviewed and reconciled with the patient * Allergies: N .K.D.A.yes[Allergies Verified] Objective: * Vitals: H t: 70, Wt: 192, BMI:27.55, BP:120/64, Wt-k.09. weight is up 8 pounds since 08-12-24. * P ast Orders: L ab:Hemoglobin A1c (Order Date - 02/15/2025) (Collection Date & Time - 02/15/2025 08:56 AM) Value Reference Range Hemoglobin A1c % 5.8 <6.0 - % Estimated Average Glucose 120 - mg/dL L ab:Lipid Panel with Reflex (Order Date - 02/15/2025) (Collection Date & Time - 02/15/2025 08:56 AM) Value Reference Range Triglycerides 92 <150 - mg/dL Cholesterol 109 <200 - mg/dL LDL Cholesterol Calculated 52 <100 - mg/dL HDL Cholesterol 39 L >40 - mg/dL L ab:Glucose Fasting (Order Date - 02/15/2025) (Collection Date & Time - 02/15/2025 08:56 AM) Value Reference Range Glucose Fasting 107 H 60-99 - mg/dL L ab:Liver Panel (Order Date - 02/15/2025) (Collection Date & Time - 02/15/2025 08:56 AM) Value Reference Range Bilirubin Total 0.6 0.0-1.0 - mg/dL Bilirubin Direct 0.2 0.0-0.5 - mg/dL Aspartate Amino Transferase 32 5-37 - U/L Alanine Aminotransferase 31 0-40 - U/L Total Protein 7.1 6.5-8.0 - g/dL Albumin Level 4.5 3.5-5.0 - g/dL Alkaline Phosphatase 80 39-117 - U/L * Examination: G eneral Examination: GENERAL APPEARANCE: a lert, well hydrated, in no distress.? HEAD: n ormocephalic. SKIN: g ood turgor. HEART: r egular rate and rhythm, no murmurs, rubs, gallops.? LUNGS: n o wheezes, rales, rhonchi, good air movement. Assessment: * Assessment: 1. N europathy - G62.9 (Primary) 2 . C oronary artery disease of [place] artery of [place] heart with stable angina pectoris - I25.118 3 . P rediabetes - R73.03 Plan: * Treatment: 2. C oronary artery disease of [place] artery of [place] heart with stable angina pectoris Start Nitroglycerin Tablet Sublingual, 0.4 MG, 1 tablet under the tongue and allow to dissolve as needed. Take every 5 minutes up to 3 times if chest pain persists, Sublingual, Three times a day, 30 days, 25, Refills 5. Notes: stable, will continue current regiment 3. P rediabetes Notes: stable, no need for medication at this time * Procedure Codes: * * Sign off status: Completed true * Provider: Dejuan Hsu MD Date: 0 02/18/2025 Generated for Anamaria garcia/Shila/Garretitting on: 10/18/2024 08:49 AM EST History and Physical Notes * HPI (History of Present Illness) Category Sub-Category Detail Notes Category Not es Symptom(s) patient is a 64 yo male here for 6 month follow up visit Examination Category Sub-Category Detail Notes Category Not es General Examination GENERAL APPEARANCE: alert, w ell hydrated, in no distress HEAD: normocephalic HEART: regular rate and rhy thm, no murmurs, rubs, gallops LUNGS: no wheezes, rales, r honchi, good air movement SKIN: good turgor
--- OUTSIDE RECORDS SUMMARY | 2025-08-11 03:45 | XMS_ITS ---
Author Organization Shan Hsu MD Address [address] [place] [phone] Care Team Providers Care Printing Table Hand Name Role Phone Shan Hsu Primary Care Provider REASON FOR VISIT FASTING LABS Encounters Encounter Location Date Provider Diagnosis Shan Hsu MD [address] [place] [id number] 08/11/2025 Shan Hsu Prediabetes R73.03 ; Essential hypertension I10 and Vitamin D deficiency E55.9 Assessments Encounter Date Diagnosis (ICD Code) Assessment Notes Treatment Notes Treatment Clinical Notes Section Notes 08/11/2025 Prediabetes (ICD-10 - R73.03) 08/11/2025 Essential hypertension (ICD-10 - I10) 08/11/2025 Vitamin D deficiency (ICD-10 - E55.9) Plan Of Treatment Pending Test Test Name Order Date Complete Blood Count Auto Diff Comprehensive [place]. Panel Fast Lipid Panel 08/11/2025 PSA,Total (Free>4and<10) 08/11/2025 Vitamin D 25-OH Total 08/11/2025 Microalbumin, Random 08/11/2025 Hemoglobin A1c 08/11/2025 UA ClnCatch+Micro w/rflx Cult 08/11/2025 Next Appt Details Provider Name:Shan Dhaliwal ier, 08/18/2025 03:30:00 PM, [address] [place] [address], [address], [place], [place], [phone], Progress Notes * Kevin DEL REAL MDOB: 9 (65 yo M)Acc No.[id number]:08/11/2025 Progress Note Patient: Kevin LUCERO Provider: Dejuan Hsu MD :1960 A ge:65 Y S ex:Male Date:08/11/2025 Address:[address] [place] [address], [id number] Subjective: * Chief Complaints: * 1 . FASTING LABS. * Medical History: Objective: * Vitals: Assessment: * Assessment: 1. P rediabetes - R73.03 (Primary) 2 . E ssential hypertension - I10 ? 3 . V itamin D deficiency - E55.9 Plan: * Treatment: 2. E ssential hypertension L AB: Complete Blood Count Auto Diff L AB: Comprehensive [place]. Panel Fast L AB: Lipid Panel L AB: PSA,Total (Free>4and<10) L AB: Vitamin D 25-OH Total L AB: Microalbumin, Random L AB: Hemoglobin A1c L AB: UA ClnCatch+Micro w/rflx Cult 3. V itamin D deficiency L AB: Complete Blood Count Auto Diff L AB: Comprehensive [place]. Panel Fast L AB: Lipid Panel L AB: PSA,Total (Free>4and<10) L AB: Vitamin D 25-OH Total L AB: Microalbumin, Random L AB: Hemoglobin A1c L AB: UA ClnCatch+Micro w/rflx Cult * * The named appointment provid er may or may not be the originator of this progress note, and it is not deemed complete until electronically signed by the appointment provider. Sign off status: Pending * Provider: Dejuan Hsu MD Date: Generated for Anamaria garcia/Shila/Garretitting on: 10/18/2024 08:50 AM EST
--- OUTSIDE RECORDS SUMMARY | 2025-08-18 08:49 | XMS_ITS | Clinical Summary ---
Author Organization [facility] Address [address] [place] [address] Phone Care Team Providers Care Joint Machine Operator Name Role Phone Shan Hsu MD Primary Care Provider Allergies No known active allergies Medications metoprolol succinate (TOPROL-XL) 50 MG 24 hr tabletIndications: prevention of anginal pain in coronary artery disease Take 50 mg by mouth daily. Indications: prevention of anginal chest pain associated with coronary artery disease Active amLODIPine (NORVASC) 5 MG tabletIndications: hypertension Take 5 mg by mouth daily. Indications: high blood pressure Active aspirin 81 mg chewable tabletIndications: myocardial infarction prevention Take 81 mg by mouth daily. Indications: treatment to prevent a heart attack Active sertraline (ZOLOFT) 25 MG tabletIndications: generalized anxiety disorder Take 100 mg by mouth daily. Indications: repeated episodes of anxiety Active omeprazole (PRILOSEC) 20 MG capsule Take 20 mg by mouth daily. Active nitroglycerin (NITROSTAT) 0.[address] 0.4 mg under the tongue every 5 (five) minutes as needed for chest pain. Active atorvastatin (LIPITOR) 80 MG tabletIndications: atherosclerotic cardiovascular disease,myocardial infarction prevention Take 1 tablet (80 mg total) by mouth daily. Indications: hardening of the arteries due to plaque buildup, treatment to prevent a heart attack 90 tablet 3 0 Active prasugreL (EFFIENT) 10 mg Tab Take 1 tablet (10 mg total) by mouth daily. 30 tablet 11 0 Active Active Problems Problem Noted Date Diagnosed Date CAD in telida artery 06/14/2020 Coronary artery disease due to calcified coronar y lesion 04/26/2020 Chronic total occlusion of coronary artery 04/25 Assessment & Plan (06/13/2020 8:16 PM EDT): Two know PART TIME FLEXIBLE CLERK. On 04/26/20 he underwent successful PCI of mid LAD PART TIME FLEXIBLE CLERK into D2. Presented today for a stagged procedure and underwent a planned LCx PART TIME FLEXIBLE CLERK with one ISHMAEL. Patent LAD stents with moderate distal RCA lesion. Denies chest pain. Complaining of new dyspnea - Post procedure echo: EF 66%, no pericardial effusion - Post procedure hydration - Loaded with Ticagrelor in CCL, will receive 90 mg tonight - Given pts new dyspnea, will load with Prasugrel 60 mg tomorrow and continue with 10 mg daily - ASA 81 mg daily - Continue high dose statin - Continue Amlodipine and Toprol IVF - CK and CKMB and 6pm today, and 6am tomorrow with his morning labs. - Outpatient cardiac rehab - Follow-up with local residential framing carpenter Dr. Kvng Hooks - Televisit Dr. Rahman 2-3 weeks. Assessment & Plan (06/13/2020 7:36 AM EDT): CCS Class III angina, high risk stress test with global ischemia Oct 2019, 3 vessel CAD with LAD and LCx CTOs and rPDA stneosis. - s/p LAD PART TIME FLEXIBLE CLERK ISHMAEL/PCI x 3 04/26/20 with good results. His current CCS class is somewhat difficult to determine as he is not really exerting himself but would estimate CCS class I-II on amlodipine and metoprolol. - given extent of ischemia, additional revascularization is indicated and will pursue LCx PART TIME FLEXIBLE CLERK PCI today. Will also reassess rPDA lesion with iFR. - Access: 7F RFV 23cm Arrow sheath, 7F RFA 45cm sheath, 6F RRA - he is enrolled in the Teleflex PART TIME FLEXIBLE CLERK study. - continue high intensity statin (atorva 80mg, LPa < 6), ASA, Plavix, PPI - he it tolerating DAPT without difficulty - recommend cardiac rehab after revascularization Assessment & Plan (04/26/2020 11:02 PM EDT): Successful mid LAD PART TIME FLEXIBLE CLERK into D2 (three ISHMAEL, 2 in DK fashion). He will be evaluated for PART TIME FLEXIBLE CLERK of LCX in approximately six weeks. He was enrolled in the Teleflex PART TIME FLEXIBLE CLERK study and will need CK and CKMB labs at 6-12 hours post-procedure, and 18-24 hours (or before discharge). - These were drawn at 8pm on 04/26 and are scheduled for 8am on 04/27 with am labs -Lp(a) pending checked to assess risk for premature CAD. -patient is on Metoprolol and Norvasc at home will continue in am -if SBP stable consider addition of PAOLA d/t aortic root dilitation -lipitor advanced to 80mg daily -continue ASA and plavix -Will likely plan for CFX PART TIME FLEXIBLE CLERK PCI in 6-8 weeks. -plan for televisit in two weeks with Dr Rahman -patient is followed by a Cardioligist in [place] by Dr Hooks Assessment & Plan (04/26/2020 7:49 AM EDT): CCS 3 angina on 2 antianginals (BB, CCB) due to CTOs of the mid LAD, and OM1. His last catheterization in 11/2019 showed 100% stenosis of the mid LAD, 100% stenosis of the OM1 and 70% stenosis of the RPDA. His last stress test in 10/2019 was positive for ischemic EKG changes of [address] depression in leads 2, 3, V3-V5 and ST elevation in aVR. His last echocardiogram in 11/2019 showed normal left ventricular size and systolic function, LVEF 55-60%, normal diastolic function, mild to moderate mitral regurgitation, and mildly elevated right atrial pressure. He is on a good CAD medical regimen with ASA and statin, BB and CCB. He does not have diabetes or chronic kidney disease or stroke/TIA. He is a good DAPT candidate without plans for elective surgery within the next 6-12 months. Cath films reviewed as above. Dr. Rahman discussed a first-time 85-90%% success rate in the program, and that some patients may return for a repeat attempt if not initially successful, typically after 10-12 weeks. Discussed advanced approaches such as antegrade wire escalation (AWE), antegrade dissection reentry (ADR), and retrograde PCI approaches. Discussed the risks with the patient of PART TIME FLEXIBLE CLERK PCI involving an above average MACE rate of 1-2 % including , AL, CABG or other surgery, stroke, bleeding, CCU stay, significant PPMI, CIARF/YOU/HD, device complication, and radiation exposure. Discussed that other attendings and cardiology fellows may participate in the case and perform parts of the procedure under my supervision. PCI strategy would be staged with LAD PART TIME FLEXIBLE CLERK PCI first, and then revaluation for CFX PART TIME FLEXIBLE CLERK PCI. Did not take norvasc or toprol today. Family History Medical History Relation Comments Coronary artery disease Father CABG at age 73 Relation Status Comments Brother Alive Father Alive Mother Alive Sister Alive Son Alive Social History Tobacco Use Types Packs/Day Years Used Date Smoking Tobacco: Never Smokeless Tobacco: Never Alcohol Use Standard Drinks/Week Comments Yes 0 (1 standard drink = 0.6 oz pur e alcohol) social. one drink a week Education Answer Date Recorded Are you interested in more education? Not on zarina e 02/07/2023 Are you concerned about learning? Not on file 02/07/2023 No 02/07/2023 No 02/07/2023 Digital Access Answer Date Recorded No 03/08/2023 No 03/08/2023 Reliable internet access at home? Not on file 03/08/2023 Device with a working camera? Not on file Sex and Gender Information Value Date Recorded Sex Assigned at Male 04/24/2020 6:15 PM EDT Legal Sex Male 4:04 PM EST Gender Identity Male 04/24/2020 6:15 PM EDT Sexual Orientation Straight 04/24/2020 6: 15 PM EDT Last Filed Vital Signs Vital Sign Reading Time Taken Comments Blood Pressure 138/81 06/14/2020 11:57 AM EDT Pulse 67 06/14/2020 12:00 PM EDT Temperature 36.6 C (97.9 F) 06/14/2020 11:57 AM EDT Respiratory Rate 18 06/14/2020 11:5 7 AM EDT Oxygen Saturation 98% 06/14/2020 11: 57 AM EDT Inhaled Oxygen Concentration - - Weight 82.4 kg (181 lb 10.5 oz) 06/14/2020 7:53 AM EDT Height 177.8 cm (5' 10 ) 06/13/2020 12: 22 PM EDT Body Mass Index 26.07 06/13/2020 12:22 PM EDT Plan of Treatment Health Maintenance Due Date Last Done Comments Adult Td,Tdap Booster 1960 HEPATITIS C SCREENING 1977 COLOGUARD 02/25/2004 COLONOSCOPY 02/25/2004 COLORECTAL CANCER SCREENING 02/25/2004 FIT TEST 02/25/2004 FOBT 02/25/2004 SIGMOIDOSCOPY 02/25/2004 VIRTUAL COLONOSCOPY 02/25/2004 PNEUMOCOCCAL VACCINES (50+ years) (1 of 1 - PCV) 2009 ZOSTER VACCINES (1 of 2) 2009 DEPRESSION SCREENING 04/24/2021 04/24/2020 INFLUENZA VACCINE (#1) 2025 , 07/28/2019, 08/16/2018, Additional history exists COVID-19 VACCINE (3 - 2024- season) 2025 10/26/2020, 10/04/2020 RSV VACCINE (1 - 1-dose 75+ series) 2034 SMOKING STATUS SCREENING (Once After 26 Yrs) Completed 06/13/2020 HEPATITIS A VACCINES Aged Out No long er eligible based on patient's age to complete this topic HIB VACCINES Aged Out No longer eligi ble based on patient's age to complete this topic MENINGOCOCCAL VACCINES (ACWY) Aged Out No longer eligible based on patient's age to complete this topic MENINGOCOCCAL VACCINES (B) Aged Out N o longer eligible based on patient's age to complete this topic Medical Devices Implanted Type Area Corporate Accounting Manager Device Identifier Shelf Expiration Date Model / Serial / Lot Stent Synergy 2.25mm 8mm Monorail [employer] - [id number] Implanted:Qty: 1 on 04/26/2020 by Jason Rahman MD, PhD at [facility] [employer] 02/28/2021 [id number] / / [id number] Description:LAD Stent Synergy 2.5mm 38mm Monorail [employer] - [id number] Implanted:Qty: 1 on 04/26/2020 by Jason Rahman MD, PhD at [employer] [facility] [employer] 08/18/2021 [id number] / / [id number] Description:LAD Stent Synergy 3mm 38mm Monorail [employer] - [id number] Implanted:Qty: 1 on 04/26/2020 by Jason Rahman MD, PhD at [facility] [facility] [employer] 08/15/2021 [id number] / / [id number] Description:LAD Stent Synergy 2.25mm 38mm Monorail [employer] - [id number] Implanted:Qty: 1 on 06/13/2020 by Jason Rahman MD, PhD at [employer] 11/01/2021 [id number] / / [id number] Description:LCX Insurance check24 [facility] PPO EPO check24 [facility] PPO E[place] [address] [address] PPO EPO [facility] PPO EPO [facility] PPO EPO Advance Directives For more information, please contact: [phone] (9AM - 5PM [place], Friday-Friday) * Full Code (Latest Code Status on File) Date Activated Date Inactivated Comments 06/13/2020 2:39 PM Question Answer Comments Code Status Confirmed With: Patient * Full Code (Confirmed) Date Activated Date Inactivated Comments 04/26/2020 8:39 PM 06/13/2020 6:39 AM Question Answer Comments Code Status Confirmed With: Patient * Full Code (Presumed) Date Activated Date Inactivated Comments 04/26/2020 8:31 PM 04/26/2020 8:39 PM * Full Code (Presumed) Date Activated Date Inactivated Comments 04/26/2020 5:05 PM 04/26/2020 8:30 PM Care Teams Joint Machine Operator Relationship Specialty Start Date End Date Shan Hsu MD [address] [place] [address] Dr [place] [id number] PCP - General Internal Medicine 11/30/19 Additional Source Comments The information contained in this document represents components of the legal health record. It is not the complete legal health record.[facility]
--- OUTSIDE RECORDS SUMMARY | 2025-08-18 08:49 | XMS_ITS | Patient Health Record ---
Author Organization Shan Hsu MD Address [address] [place], [place] [id number] Care Team Providers Care Patent Law Specialist Name Role Phone Shan Hsu Primary Care Provider Allergies No Known Allergies Results Component Value Reference Range Notes Liver Panel Reviewed date:02/15/2025 03:28:07 PM Interpretation: Performing Lab:[address] [phone] Notes/Report: Bilirubin Total 0.6 0.0-1.0 mg/dL Bilirubin Direct 0.2 0.0-0.5 mg/dL Aspartate Amino Transferase 32 5-37 U/L Alanine Aminotransferase 31 0-40 U/L Total Protein 7.1 6.5-8.0 g/dL Albumin Level 4.5 3.5-5.0 g/dL Alkaline Phosphatase 80 39-117 U/L Glucose Fasting Reviewed date:02/15/2025 04:51:16 PM Interpretation: Performing Lab:[address] [phone] Notes/Report: Glucose Fasting 107 60-99 mg/dL A fasting glucose from 100-125 mg/dl is considered impaired (pre-diabetes). Lipid Panel with Reflex Reviewed date:02/15/2025 04:51:32 PM Interpretation: Performing Lab:[facility], [address] [place] [phone] Notes/Report: Triglycerides 92 <150 mg/dL Desirable Triglyceride: [...] A1c Reviewed date:02/15/2025 10:12:04 AM Interpretation: Performing Lab:[facility], [address] [place] [phone] Notes/Report: Hemoglobin A1c % 5.8 <6.0 % [...] average glucose, using the formula of the [id number] Average Glucose study (ADAG), Diabetes Care, Vol.31,#8, May. 2007 Reason For Referral No Information Medications Medication SIG (Take, Route, Frequency, Duration) Notes Start Date End Date Status Lisinopril 5 MG TAKE 1 TABLET BY DONTA TH EVERY DAY for 30 Not-Taking Sertraline HCl 100 MG TAKE 1 TABLET BY M OUTH EVERY DAY for 90 Active PriLOSEC OTC 20 MG 1 tablet 30 minutes before morning meal Orally Once a day for 30 day(s) Active Atorvastatin Calcium 80 MG TAKE 1 TABLET BY MOUTH EVERY DAY FOR 90 DAYS for 90 Active PriLOSEC 20 MG 1 [...] Administered pt was give n vaccine at [facility] Fluarix Quadrivalent IM Intramuscular 08/16/[facility] Pt was given the vaccine at [facility] in [place]. Fluarix Quadrivalent Unknown 07/27/2019 Administered pt had the vaccine at the hospital. Fluarix Quadrivalent IM Intramuscular 07/18/2020 Administe red Covid Vaccine Unknown 10/04/2020 Administered Covid Covid Vaccine Unknown 10/26/2020 Administered Pfizer Fluarix Quadrivalent Unknown 07/03/2021 Administered [facility] SARS-COV-2 Pfizer Unknown 07/20/2021 Administered Fluarix Quadrivalent IM Intramuscular 07/25/2022 [facility] Fluarix Quadrivalent IM Intramuscular 08/07/2023 Administe red SARS-COV-2 Pfizer Unknown 08/15/2023 Administered [facility] Sh[facility]rix Unknown 08/13/2024 Administered [facility] Fluarix Quadrivalent - 150 Unknown 08/21/2024 Administered [facility] Social History Tobacco Use: Social [...] Status W/U Status Risk Notes Problem Neuropathy (363157533) Neuropathy (G62.9) Active confirmed Problem 22845736 Vitamin D deficiency (E55.9) Active confirmed Problem 333720375 Elevated BUN (R79.9) Active confirmed Problem 6627625 Supraventricular tachycardia (I47.1) Active confirmed Problem 94485966 Essential hypertension (I10) Active confirmed Problem 321070175 Dilated aortic r oot (I77.810) Active confirmed Problem 000964587 Prediabetes (R73.03) Active confirmed Problem 752970255 Coronary artery disease of [place] artery of [place] heart with stable angina pectoris (I25.118) Active confirmed Problem [id number] Family history o f vitamin D deficiency [...] Date Provider Diagnosis Shan Hsu MD [address] [place], [place] [phone] 02/18/2025 Shan Hsu Neuropathy G62.9 ; Coronary artery disease of [place] artery of [place] heart with stable angina pectoris I25.118 and Prediabetes R73.03 Assessments Encounter Date Diagnosis (ICD Code) Assessment Notes Treatment Notes Treatment Clinical Notes Section Notes 02/18/2025 Neuropathy (ICD-10 - G62.9) has some sensation on the bottoms of feet. may be related to the elevated sugars 02/18/2025 Coronary artery disease of [place] artery of [place] heart with stable angina pectoris (ICD-10 - I25.118) stable, will continue current regiment 02/18/2025 Prediabetes (ICD-10 - R73.03) stable, no need for medication at this time Plan Of Treatment Pending Test Test Name Order Date Electrocardiogram (EKG) 01/09/2018 US ABD 08/01/2022 ECHO 01/06/2017 Next Appt Details Provider Name:Shan gillr, 08/18/2025 03:30:00 PM, [address], [address], [place], [place], [phone], Insurance Providers Payer Name Payer Address Payer Phone Subscriber Number Group Number Insured Name Patient Relationship to Insured Coverage Start Date Coverage End Date [employer] [address] [place] [address] [id number] Kevin Del Real Self - patient is the insured [facility] [address] [place], [place] [phone] [id number] Kevin Del Real Self - patient is the insured Medical (General) History Medical History History ICD Code 01/31/[address] Aragon
--- OUTSIDE RECORDS SUMMARY | 2025-08-18 08:50 | XMS_ITS | Patient Health Record ---
Author Organization [facility] Address [address] [place] [phone] Care Team Providers Care Necktie Centralizing Machine Operator Name Role Phone Shan Hsu MD Primary Care Provider Lula Aragon Jr, Kareem Unavailable Reason For Referral No Information Medications Medication SIG (Take, Route, Frequency, Duration) Notes Start Date End Date Status Keflex 500 MG 1 capsule Orally ethan ry 6 hrs; Duration: 10 days 05/04/2019 Active Keflex 500 MG 1 capsule Orally ethan ry 6 hrs; Duration: 10 day(s) 09/26/2017 Active Plan Of Treatment No Information Insurance Providers Payer Name Payer Address Payer Phone Subscriber Number Group Number Insured Name Patient Relationship to Insured Coverage Start Date Coverage End Date [facility] [address] [place], [place] [id number] [phone] [id number] KIANA DEL REAL Self - patient is the insured
--- OUTSIDE RECORDS SUMMARY | 2025-08-18 08:50 | XMS_ITS | Encounter Summary ---
Author Organization [facility] Address [address] [place] [address] Phone Care Team Providers Care Claim Specialist Name Role Phone Shan Hsu MD Primary Care Provider Encounter Details Date Type Department Care Team (Late st Contact Info) Description 06/13/2020 Procedure Pass [facility] Cardiac Director Wholesale [address], [address], [address] [place] [phone] Social History Tobacco Use Types Packs/Day Years Used Date Smoking Tobacco: Never Smokeless Tobacco: Never Alcohol Use Standard Drinks/Week Comments Yes 0 (1 standard drink = 0.6 oz pur e alcohol) social. one drink a week Sex and Gender Information Value Date Recorded Sex Assigned at Male 04/24/2020 6:15 PM EDT Legal Sex Male 4:04 PM EST Gender Identity Male 04/24/2020 6:15 PM EDT Sexual Orientation Straight 04/24/2020 6: 15 PM EDT documented as of this encounter Plan of Treatment Not on file documented as of this encounter Visit Diagnoses Not on filedocumented in this encounter Care Teams Claim Specialist Relationship Specialty Start Date End Date Shan Hsu MD [address] [place] [address] [place] [address] PCP - General Internal Medicine 11/30/19 documented as of this encounter Additional Source Comments The information contained in this document represents components of the legal health record. It is not the complete legal health record.[facility]
--- OUTSIDE RECORDS SUMMARY | 2025-08-18 08:50 | XMS_ITS | Encounter Summary ---
Author Organization [facility] Address [address] [place] [address] Phone Care Team Providers Care Ventilating Equipment Installer Name Role Phone Shan Hsu MD Primary Care Provider Encounter Details Date Type Department Care Team (Late st Contact Info) Description 04/26/2020 Procedure Pass [facility] Cardiac Acquisition Marketing Manager [address], [address], [address] [place] [phone] Social History Tobacco Use Types Packs/Day Years [...] on filedocumented in this encounter Care Teams Ventilating Equipment Installer Relationship Specialty Start Date End Date Shan Hsu MD [address] [place] [address] [place] [address] PCP - General Internal Medicine 11/30/19 documented as of this encounter Additional Source Comments The information contained in this document represents components of the legal health record. It is not the complete legal health record.[facility]
--- OUTSIDE RECORDS SUMMARY | 2025-08-18 08:50 | XMS_ITS | Encounter Summary ---
Author Organization [facility] Address [address] [place] [address] Phone Care Team Providers Care Chimney Sweeper Name Role Phone Shan Hsu MD Primary Care Provider Reason for Visit * Reason Comments Medication Refill Encounter Details Date Type Department Care Team (Late st Contact Info) Description 03/17/2021 Refill [facility] [address] [place] [address], [address]th Floor, [address] [place] [address] Crow Carver MD [email or web address] Medication Refill Social History Tobacco Use Types Packs/Day Years [...] PM EDT documented as of this encounter Progress Notes * Madhuri Wilde RN - 03/23/2021 2:45 PM EDT Last OV: 07/03/20 Next OV: Not scheduled Refill: atorvastatin 80 mg QD Madhuri Wilde RN documented in this encounter Plan of Treatment Not on file documented as of this encounter Visit Diagnoses Not on filedocumented in this encounter Care Teams Chimney Sweeper Relationship Specialty Start Date End Date Shan Hsu MD [address] [place] [address] [place] [address] PCP - General Internal Medicine 11/30/19 documented as of this encounter Additional Source Comments The information contained in this document represents components of the legal health record. It is not the complete legal health record.[facility]
--- OUTSIDE RECORDS SUMMARY | 2025-08-18 10:30 | XMS_ITS ---
Author Organization Shan Hsu MD Address [address] [place] [id number] Care Team Providers Care Sales Utility Representative Name Role Phone Shan Hsu Primary Care Provider Allergies No Known Allergies REASON FOR VISIT COMP EXAM Social History Tobacco Use: Social History Observation [...] ast year? No Points 0 Interpretation Negative Encounters Encounter Location Date Provider Diagnosis Shan Hus MD [address] [place] [phone] 08/18/2025 Shan Hsu Plan Of Treatment Next Appt Details Provider Name:Shan Dhaliwal ier, 08/18/2025 03:30:00 PM, [address], [address], [place], [place], [phone], Progress Notes * Kevin DEL REAL MDOB: (65 yo M)Acc No.[id number]:08/18/2025 Patient: Chela Kevin KEITH Provider: Dejuan Hsu MD :1960 A ge:65 Y S ex:Male Date:08/18/2025 Address:[address] [place] [address], Ron salvador [id number] Subjective: * Chief Complaints: * 1 . COMP EXAM. * HPI: D epression Screening: PHQ-9 L [...] was really needed? Check all that apply: N one. S ymptom(s): patient is a 65 yo male here for visit with review of recent labs and follow up of chronic issues. * Medical History: Colonoscopy by Dr. Aragon. * Family History: F ather: 95 yrs, [...] weeks/months/years, works full-time. Pets: none, 1 dog. * Allergies: N .K.D.A. Objective: * Vitals: Assessment: Plan: * Treatment: * * The named appointment provid er may or may not be the originator of this progress note, and it is not deemed complete until electronically signed by the appointment provider. Sign off status: Pending * Provider: Dejuan Hsu MD Date: 10/18/2024 Generated for Anamaria garcia/Shila/Garretitting on: 10/18/2024 08:49 AM EST History and Physical Notes * HPI (History of Present Illness) Category Sub-Category Detail Notes Category Not es Symptom(s) patient is a 65 yo male here for visit with review of recent labs and follow up of chronic issues Depression Screening PHQ-9 Little inte rest or [...] was really needed? Check all that apply:: None Fall Risk History Have you had any falls with injury i n the past year?: No Have you had two or more falls in the year?: No Communication Needs Communication Needs Does the patient have a hearing impairment: No Does the patient have a vision impairmen t?: Yes If yes, what is the vision impairment?: Glasses Does the patient have a cognition impair ment?: No
[2025-08-18 10:35] LABS: MANUAL DIFF FLAG NO
[2025-08-18 10:38] LABS: Hematocrit 40.1 % (42.0-52.0); Hemoglobin 14.3 g/dl (14.0-18.0); Imm Gran Abs Auto 0.02 X10*3/uL (0.00-0.03); Imm Gran Pct Auto 0.3 % (0.0-0.4); Lymphocytes Absolute Auto 2.2 X10*3/uL (1.2-4.9); Mean Corpuscular HGB Conc 35.7 g/dl (31.0-36.0); Mean Corpuscular Hemoglobin 31.9 pg (27.0-33.0); Mean Corpuscular Volume 89.5 fL (80.0-98.0); NRBC Abs Auto 0.000 X10*3/uL (0.0-0.012); NRBC Pct Auto 0.0 /100WBC (0.0-0.2); Platelet Count 180 X10*3/uL (160-400); Red Blood Count 4.48 X10*6/uL (4.60-5.80); White Blood Count 7.9 X10*3/uL (4.8-10.8)
[2025-08-18 11:00] LABS: Appearance Urine Clear; Glucose Urine UA Negative (Negative); PH 7.0 (5.0-9.0); Specific Gravity - Urine 1.015 (1.005-1.025); UMIC TRIGGER UACC YES
[2025-08-18 11:03] LABS: Alanine Aminotransferase 34 U/L (0-40); Albumin Level 4.7 g/dL (3.5-5.0); Alkaline Phosphatase 86 U/L (39-117); Anion Gap 11 (12-20); Aspartate Amino Transferase 41 U/L (5-37); Blood Urea Nitrogen 21 mg/dL (9-16); Calcium 9.3 mg/dL (8.4-10.2); Carbon Dioxide 28 mmol/L (22-29); Chloride 101 mmol/L (96-108); Cholesterol 95 mg/dL (<200); Estimated Glomerular Filt Rate > 60; HDL Cholesterol 38 mg/dL (>40); Hemoglobin A1C 97.6199 umol/L; Potassium 4.2 mmol/L (3.3-5.1); Sodium 136 mmol/L (135-145); Total Hemoglobin (HGBA1C) 2502.5252 umol/L; Total Protein 7.1 g/dL (6.5-8.0); Triglycerides 70 mg/dL (<150)
[2025-08-18 11:12] LABS: PSA,Total (Free>4and<10) 1.03 ng/mL (0.00-4.00)
[2025-08-18 11:24] LABS: Microalbum/Creatinine Ratio Ur 5.6 ug/mg cr (<30)
== END 2025-08-18 08:25 | disposition home or self-care (01) ==
LOC: HO.10HDL 08:24
PROVIDERS: Visit Provider Internal Medicine
DX: Z12.5 Encounter for screening for malignant neoplasm of prostate (principal); R73.03 Prediabetes; I10 Essential (primary) hypertension; E55.9 Vitamin D deficiency, unspecified
CPT/HCPCS: 36415; 80053; 80061; 81001; 82043; 82306; 82570; 83036; 84153; 85025